=== PATIENT | female | born 1955 | race Caucasian/White ===

== ENCOUNTER 2018-03-08 15:34 | Outpatient (REF) | payer MEDICARE, MEDICAID, SELFPAY ==
[2018-03-11 17:30] LABS: AM Cortisol 205 ng/dL (100-750)
== END 2018-03-08 15:54 ==
LOC: LBN 15:34
PROVIDERS: PCP Family Medicine; Visit Provider Naturopath
DX: F32.9 Major depressive disorder, single episode, unspecified (principal); R53.83 Other fatigue; M79.7 Fibromyalgia; E03.9 Hypothyroidism, unspecified
CPT/HCPCS: 82530

== ENCOUNTER 2018-03-25 01:59 | Outpatient (CLI) | payer MEDICARE, MEDICAID, SELFPAY ==
[2018-03-25 08:39] LABS: Hemoglobin A1C 5.6 % (4.5-6.2)
[2018-03-25 09:26] LABS: Calcium 8.7 mg/dL (8.5-10.1); LDL CHOLESTEROL 106 mg/dL (<100); TSH 2.08 uIU/mL (0.358-3.74)
[2018-03-25 09:54] LABS: FREE T4 0.93 ng/dL (0.76-1.46); PHOSPHORUS 4.6 mg/dL (2.6-4.7)
[2018-03-28 05:11] LABS: Vitamin D 25 Total 35.4 ng/ml (30-100)
[2018-03-28 08:46] LABS: Fructosamine 236 mcmol/L (200 - 285)
== END 2018-03-25 02:19 ==
PROVIDERS: PCP Family Medicine; Visit Provider Internal Medicine Endocrinology, Diabetes & Metabolism
DX: R73.03 Prediabetes (principal); M85.80 Other specified disorders of bone density and structure, unspecified site; E78.00 Pure hypercholesterolemia, unspecified; E03.9 Hypothyroidism, unspecified
CPT/HCPCS: 36415; 82306; 83721; 82310; 82985; 83036; 84100; 84439; 84443

== ENCOUNTER 2018-05-13 09:27 | Outpatient (CLI) | payer MEDICARE, MEDICAID, SELFPAY ==
[2018-05-16 09:37] LABS: Thyroglobulin Antibody 316 U/mL (<61); Thyroperoxidase Antibody 403 U/mL (<61)
[2018-05-16 10:38] LABS: DHEA Sulfate 102 ug/dl (30-182)
[2018-05-17 05:21] LABS: Testosterone, Total 18 ng/dL (8-60)
== END 2018-05-13 09:47 ==
PROVIDERS: PCP Family Medicine; Visit Provider Internal Medicine Endocrinology, Diabetes & Metabolism
DX: E03.9 Hypothyroidism, unspecified (principal); R73.03 Prediabetes; M85.80 Other specified disorders of bone density and structure, unspecified site; L64.8 Other androgenic alopecia
CPT/HCPCS: 36415; 82627; 84403; 86376; 86800

== ENCOUNTER 2018-12-19 14:34 | Outpatient (REF) | payer MEDICARE, MEDICAID, SELFPAY ==
[2018-12-19 20:22] LABS: TSH (W/Ref FT4) 1.31 uIU/mL (0.358-3.74)
[2018-12-19 23:44] LABS: Hemoglobin A1C 5.5 % (4.5-6.2)
== END 2018-12-19 14:54 ==
LOC: NCHCN 14:34
PROVIDERS: PCP Family Medicine; Visit Provider Family Medicine
DX: R73.03 Prediabetes (principal); E05.00 Thyrotoxicosis with diffuse goiter without thyrotoxic crisis or storm
CPT/HCPCS: 83036; 84443

== ENCOUNTER 2019-09-06 10:55 | Outpatient (CLI) | payer MEDICARE, MEDICAID, SELFPAY ==
--- NOTE | 2019-09-06 10:00 | DI.RAD_ITS ---
EXAM: XR SHOULDER LT COMPLETE 2+V CLINICAL HISTORY: Follow Up. TECHNIQUE: 2D digital imaging was performed. COMPARISON: No exams were available for comparison FINDINGS: BONES: There is a tiny osseous fragment in the soft tissues adjacent to the tuberosity on the axillar y view. This may represent an old fracture fragment or calcific tendinosis. No definite acute fract ure or dislocation is seen. No bony destructive lesion is seen. JOINTS: Hypertrophic changes are seen at the acromioclavicular joint consistent with osteoarthritis. The glenohumeral joint is well maintained. SOFT TISSUE: Normal. IMPRESSION: Tiny osseous density adjacent to the tuberosities as described above. This may represent an old frac ture fragment or calcific tendinosis. Degenerative changes of the acromioclavicular joint. DATA REPOSITORY: RADIATION DOSE DELIVERED:
== END 2019-09-06 11:15 ==
PROVIDERS: PCP Family Medicine; Referring Provider Family Medicine; Visit Provider Student in an Organized Health Care Education/Training Program
DX: M25.512 Pain in left shoulder (principal); M19.012 Primary osteoarthritis, left shoulder; M75.22 Bicipital tendinitis, left shoulder; M75.42 Impingement syndrome of left shoulder; M75.52 Bursitis of left shoulder; M75.02 Adhesive capsulitis of left shoulder
CPT/HCPCS: 99204; 73030

== ENCOUNTER 2019-09-12 03:26 | Outpatient (CLI) | payer MEDICARE, MEDICAID, SELFPAY ==
--- NOTE | 2019-09-12 07:15 | DI.MRI_ITS ---
EXAM: MR UPPER JOINT LT WO CLINICAL HISTORY: Failed physical therapy, evaluate for rotator cuff or biceps teaR,BURSITIS,. TECHNIQUE: Multiplanar multisequence MRI was performed. CONTRAST MATERIAL: None COMPARISON: 06 September 2019 plain films FINDINGS: Bones:There is no fracture or contusion pattern. The acromioclavicular joint shows mild spurring. There is a small amount of fluid in the subacromial subdeltoid bursa as well as in the subcoracoid bu rsa. There is some thickening and high signal within both the supraspinatus and infraspinatus tendon s. There is focal full-thickness tear seen anteriorly and distally in the supraspinatus tendon near the attachment on the humeral head. There is few millimeters of retraction. There is no muscular at rophy. No focal tear is seen of the infraspinatus tendon.. The subscapularis and teres minor are no rmal. Labrum and biceps anchor: The biceps tendon is located. The anchor is well maintained. The labrum is within normal limits. IMPRESSION: Full-thickness tear of the anterior supraspinatus tendon with mild retraction. Infraspinatus tendini tis. DATA REPOSITORY:
== END 2019-09-12 03:46 ==
PROVIDERS: PCP Family Medicine; Visit Provider Student in an Organized Health Care Education/Training Program
DX: M25.512 Pain in left shoulder (principal); M75.102 Unspecified rotator cuff tear or rupture of left shoulder, not specified as traumatic; M75.82 Other shoulder lesions, left shoulder; M75.22 Bicipital tendinitis, left shoulder; M75.42 Impingement syndrome of left shoulder
CPT/HCPCS: 73221

== ENCOUNTER 2019-10-05 08:35 | Outpatient (CLI) | payer MEDICARE, MEDICAID, SELFPAY ==
[2019-10-06 19:54] LABS: COVID-19 RT-PCR UVMMC Result Negative (Negative)
== END 2019-10-05 08:55 ==
PROVIDERS: PCP Family Medicine; Visit Provider Family Medicine
DX: Z03.818 Encounter for observation for suspected exposure to other biological agents ruled out (principal)
CPT/HCPCS: U0003

== ENCOUNTER → 2019-11-07 14:03 | Outpatient (BNVA) | payer MEDICARE, MEDICAID, SELFPAY | PROVIDERS: PCP Family Medicine; Referring Provider Family Medicine; Visit Provider Student in an Organized Health Care Education/Training Program | DX: M75.102 Unspecified rotator cuff tear or rupture of left shoulder, not specified as traumatic (principal); M75.22 Bicipital tendinitis, left shoulder; M75.42 Impingement syndrome of left shoulder; M75.52 Bursitis of left shoulder; M25.512 Pain in left shoulder; M75.02 Adhesive capsulitis of left shoulder | CPT/HCPCS: 99214 ==

== ENCOUNTER 2020-04-09 15:46 | Outpatient (REF) | payer MEDICARE, MEDICAID, SELFPAY ==
[2020-04-09 19:03] LABS: HCT 41.3 % (36.0-46.0); HGB 13.8 g/dL (11.2-15.7); MCH 30.7 pg (27.0-33.0); MCHC 33.4 % (32.0-36.0); MPV 11.3 fL (8.0-11.0); Platelet Count 246 10^3/uL (130-400); RBC 4.49 10^6/uL (3.93-5.22); RDW 11.9 % (11.7-14.6); WBC 4.67 10^3/uL (4.4-10.8)
[2020-04-09 19:26] LABS: ALT 36 U/L (14-59); AST 20 U/L (15-37); Albumin 4.2 g/dL (3.4-5.0); Alkaline Phosphatase 70 U/L (46-116); Anion Gap 9.5 mmol/L (3-11); BUN 15 mg/dL (7-18); Bilirubin, Total 0.7 mg/dL (0.2-1.0); CO2 23.5 mmol/L (21.0-32.0); CREATININE 0.85 mg/dL (0.55-1.02); Calcium 9.3 mg/dL (8.5-10.1); Chloride 105 mmol/L (98-107); Glucose 121 mg/dL (74-106); Potassium 4.1 mmol/L (3.5-5.1); Sodium 138 mmol/L (136-145); TSH (W/Ref FT4) 2.32 uIU/mL (0.36-3.74); Total Protein 7.2 g/dL (6.4-8.2)
[2020-04-09 19:30] LABS: Hemoglobin A1C 5.6 % (<5.7)
== END 2020-04-09 16:06 ==
LOC: NCHCN 15:46
PROVIDERS: PCP Family Medicine; Visit Provider Family Medicine
DX: R73.03 Prediabetes (principal); R53.83 Other fatigue; M85.80 Other specified disorders of bone density and structure, unspecified site; Z00.00 Encounter for general adult medical examination without abnormal findings
CPT/HCPCS: 80053; 82306; 85027; 83036; 84443

== ENCOUNTER 2020-05-23 16:35 | Outpatient (REF) | payer MEDICARE, MEDICAID, SELFPAY ==
[2020-05-26 16:49] LABS: COVID-19 RT-PCR Result NEGATIVE (Negative)
== END 2020-05-23 16:55 ==
LOC: NCHCN 16:35
PROVIDERS: PCP Family Medicine; Visit Provider Nurse Practitioner Family
DX: R05 Cough (principal)
CPT/HCPCS: U0003

== ENCOUNTER 2020-07-03 18:38 | Outpatient (REF) | payer MEDICARE, MEDICAID, SELFPAY ==
[2020-07-03 21:10] LABS: FREE T4 0.99 ng/dL (0.76-1.46); TSH (W/Ref FT4) 1.91 uIU/mL (0.36-3.74)
== END 2020-07-03 18:58 ==
LOC: NCHCN 18:38
PROVIDERS: PCP Family Medicine; Visit Provider Family Medicine
DX: E05.00 Thyrotoxicosis with diffuse goiter without thyrotoxic crisis or storm (principal)
CPT/HCPCS: 84439; 84443

== ENCOUNTER → 2020-08-22 13:47 | Outpatient (BNVA) | payer MEDICARE, MEDICAID, SELFPAY | PROVIDERS: PCP Family Medicine; Referring Provider Family Medicine; Visit Provider Urology | DX: N20.0 Calculus of kidney (principal) | CPT/HCPCS: 81003; 99203; 99213 ==

== ENCOUNTER 2020-08-27 01:39 | Outpatient (CLI) | payer MEDICARE, MEDICAID, SELFPAY ==
--- NOTE | 2020-08-27 07:45 | DI.CT_ITS ---
EXAM: CT ABDOMEN PELVIS WO INDICATION: kidney stones,N20.0. COMPARISON: CT RENAL COLIC WO CONTRAST from 10/10/2012 TECHNIQUE: CT examination was performed without contrast administration. FINDINGS: Images obtained through the lung bases are unremarkable. Visualized portions of the liver and splee n appear intact except for apparent 1 cm right hepatic low-attenuation lesion consistent cyst or dipika ngioma. Visualized portions of the pancreas are unremarkable. Gallbladder and bile ducts are CT normal. Abdominal aorta is of normal diameter. No significant abdominal wall hernia. No significant abdominal or pelvic adenopathy. Adrenals appear normal bilaterally. The kidneys are normal in size and shape. There is no evidence of a renal mass hydronephrosis. Ther e is a 6 millimeter in diameter nonobstructing lower left renal calculus. No additional calculi iden tified in the kidneys. No ureteral dilatation or calcification identified. Urinary bladder is unremarkable in appearance. The uterus contains some calcifications which may represent uterine fibroids. There is hemorrhage or calcification in the region the right ovary which is poorly visualized. Possibility ovarian mass is not excluded. Correlation with pelvic ultrasound recommended to rule out a right ovarian mass. IMPRESSION: Nonobstructing 6 millimeter left lower pole renal calculus. No other significant urinary tract patho logy. Findings suggesting calcific or hemorrhagic right ovarian mass, correlation with pelvic ultrasound re commended. RADIATION DOSE DELIVERED: 923.45mGy.cm DLP 923.45mGy.cm Total DLP
== END 2020-08-27 01:59 ==
PROVIDERS: PCP Family Medicine; Visit Provider Urology
DX: N20.0 Calculus of kidney (principal)
CPT/HCPCS: 74176

== ENCOUNTER → 2020-09-03 14:00 | Outpatient (BNVA) | payer MEDICARE, MEDICAID, SELFPAY | PROVIDERS: PCP Family Medicine; Referring Provider Family Medicine; Visit Provider Urology | DX: N20.0 Calculus of kidney (principal) | CPT/HCPCS: 99213 ==

== ENCOUNTER 2020-09-05 14:21 | Outpatient (REF) | payer MEDICARE, MEDICAID, SELFPAY ==
--- OUTSIDE RECORDS SUMMARY | 2020-09-05 14:25 | XMS_ITS ---
:1955 Author Care Team Providers Name Role Phone DR. ERI MARTINEZ Primary Care Provider [phone] DR. ERI MARTINEZ Referring Provider [phone] Allergies Code Code System Name Reaction Severity Status Onset 733039 RxNorm Bactrim ? ? Active ? 913767 RxNorm Cipro ? ? Active ? Hismanal ? ? Active ? Sulfa ? ? Active ? (Sulfonamide Antibiotics) Medications Name Status Start Date Stop Date ? ? amoxicillin 875 mg-potassium Completed ? 06/2015 clavulanate 125 mg tablet [place] Thyroid 30 mg tablet Unknown ? Not available Take 1 tablet every day by oral route before meals for 30 days. citalopram 10 mg tablet Completed ? 04/14/20 16 clonazepam 0.5 mg tablet Active ? Not zi ilable Take 1 tablet 3 times a day by oral route. CombiPatch 0.05 mg-0.14 mg/24 hr transdermal Active 06/2017 Not available Apply 1 patch twice a week by transdermal route. fluticasone propionate 50 Completed ? 2015 mcg/actuation nasal spray,suspension FreeStyle Lancets 28 gauge Completed ? 09/21 FreeStyle Lite Strips Completed ? 09/21/2017 test 3 times day hydrocortisone 2.5 % lotion Active ? Not available APPLY A THIN LAYER TO THE AFFECTED AREA(S) BY TOPICAL ROUTE ONC E DAILY hydrocortisone 2.5 % topical Completed ? 06/2015 cream Jinteli 1 mg-5 mcg tablet Completed ? 2016 Progesterone in Oil Completed ? 04/14/2016 ranitidine 150 mg capsule Completed ? 2015 Take 1 capsule twice a day by oral route. Relion Glucose Test Strips Active ? Not a vailable test 3-4 times daily Ritalin 5 mg tablet Active ? Not availabl e Take 1 tablet 3 times a day by oral route as needed. Synthroid 25 mcg tablet Completed ? 09/22/19 18 0.5 tablet by mouth with plain water ev riley morning at least sixty minutes before all other food, beverages, medication. Take vitamin and/or iron supplements 3 to 4 hours later. True Metrix Glucose Test Strip Completed ? 0 09/21/2017 Take 1 strip 4 times a day by miscell. route as needed. Vitamin Active 04/27/2018 Not available Patient takes some OTC combination of V itamin D and Vitamin K just started on Apr 27 on her own. Vitamin C 250 mg tablet Active ? Not avai lable Take 1 tablet twice a day by oral route. Zantac 150 mg tablet Active ? Not availab le Take 1 tablet as needed by oral route. Zyrtec 10 mg capsule Completed ? 04/14/2016 Take 1 capsule every day by oral route. Problems Name Status Onset Date Source ? Graves' Disease Active 04/13/2016 ? [place] Thyroiditis Active 04/13/2016 ? Reactive Hypoglycemia Active 04/13/2016 ? Neutropenia Active 04/13/2016 ? Posttraumatic Stress Disorder Active 04/13/2016 ? Hemorrhoids Active 04/13/2016 ? Perirectal Abscess Active 04/13/2016 ? Kidney Stone Active 04/13/2016 ? 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 Rosacea Active 04/13/2016 ? Fibromyalgia Active 04/13/2016 ? Osteopenia Active 04/13/2016 ? Fatigue Active 04/13/2016 ? Attention Deficit Hyperactivity Disorder, Active 2015 ? 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 Hypoglycemia Active 12/23/2016 ? Prediabetes Active ? ? Procedures None recorded. Results Lab Results Date Name Specimen Result Interpretation Description Value Range Status Address ? 05/13/2018 Thyroid ? No ? ? ? [place] Peroxidase observation [facility] ([place]) Ab, Serum recorded. [facility]: [address] [place] [address] 05/13/2018 Thyroglobulin ? No ? ? ? [place] Ab, Qual, Serum observation [place] recorded. [facility]: [address] [place] [address] 05/13/2018 Dhea-sulfate, ? No ? ? ? [place] Serum observation [facility] recorded. [facility]: [address] [place] [address] 05/13/2018 Testosterone, ? No ? ? ? [place] Total, Serum observation [place] recorded. [facility]: [address] [place] [address] 04/27/2018 Glucose, Blood ? Blood 154 ? ? Rhc - Fingerstick, capillary Glucose: Specialty: 103 Blood mg/dl [facility] 09/21/2017 Glucose, ? Blood 186 ? ? Rhc - Fingerstick, Glucose: Sp ecialty: 103 Blood mg/dl [facility] 03/21/2017 T4, Free, Serum ? No ? ? ? [place] observation [place] recorded. [facility]: [address] [place] [address], [place] 03/21/2017 TSH, Serum or ? No ? ? ? [place] Plasma observation [place] recorded. [facility]: [address] [place] [address], [place] 03/21/2017 Glucose, Serum ? No ? ? ? [place] or Plasma observation [place] recorded. [facility]: [address] [place] [address], [place] 11/10/2016 T4, Free, Serum ? No ? ? ? [place] observation [place] recorded. [facility]: [address] [place] [address], [place] 11/10/2016 TSH, Serum or ? No ? ? ? [place] Plasma observation [place] recorded. [facility]: [address] [place] [address], [place] 11/10/2016 CMP, Serum or ? No ? ? ? [place] Plasma observation [place] recorded. [facility]: [address] [place] [address], [place] 11/10/2016 T3, Total, ? No ? ? ? [place]astern Serum observation [place] recorded. [facility]: [address] [place] [address], [place] 11/10/2016 T3, Total, ? No ? ? ? [place] Serum observation [place] recorded. [facility]: [address] [place] [address], [place] 08/28/2016 TSH, Serum or ? No ? ? ? [place] Plasma observation [place] recorded. [facility]: [address] [place] [address], [place] 04/28/2016 T4, Free, Serum ? Free T4 1.03 0.7 Fi nal *DO Not Use* NG/dL 6-1 Ch Lab: [address], NG/ [place] dL 04/28/2016 TSH, Serum or ? Thyroid 2.65 0.3 Indu almonte *DO Not Use* Plasma Stimulating mciu/ 6-3 Ch La b: 90 Hormone mL [address], mci [place] u/m L 04/28/2016 T3, Total, ? T3 96 80- Final *D O Not Use* Serum (Triiodothyro NG/dL 200 Ch Lab: 90 nine), NG/ [address], total,S dL [place] 04/14/2016 Phosphorus, ? Phosphorus 4.4 2.3 Fin al *DO Not Use* Serum or Plasma mg/dL -4. C h Lab: [address], mg/ [place] dL 04/14/2016 BMP, Serum or ? Glucose 99 74- Indu l *DO Not Use* Plasma mg/dL 106 Ch Lab: 90 mg/ [address], dL [place] ? ? ? Urea 14 7-1 Final *DO Not Us e* Nitrogen mg/dL 8 Ch Lab: 90 mg/ [address], dL [place] ? ? ? Creatinine 0.9 0.5 Final *DO N ot Use* mg/dL 5-1 Ch Lab: [address], mg/ [place] dL ? ? ? Sodium 144.0 136 Final *DO Not U se* mmol/ -14 Ch Lab: [address], mmo [place] l/l ? ? ? Potassium 4.0 3.5 Final *DO No t Use* mmol/ -5. Ch Lab: [address], mmo [place] l/l ? ? ? Chloride 107 98- Final *DO Not Use* mmol/ 107 Ch Lab: [address], l/l [place] ? ? ? Carbon 29 21- Final *DO Not U se* Dioxide mmol/ 32 Ch Lab: [address], l/l [place] ? ? ? Calcium 9.7 8.5 Final *DO Not Use* mg/dL -10 Ch Lab: [address], mg/ [place] dL ? ? ? Anion Gap 12 ? Final *DO No t Use* Ch Lab: [address], [place] ? ? ? BUN/crea 15.4 12- Final *DO Not Use* 20 Ch Lab: [address], [place] ? ? ? Glomerular >60 ? Final *DO N ot Use* Filtration mL/mi Ch Lab : 90 Rate n/1.[address], 3M2 [place] 04/14/2016 PTH ? PTH, Intact 33 12- Final *DO Not Use* (Parathyroid pg/mL 77 Ch L ab: 90 Hormone), pg/ [address], Intact, Serum mL [place] or Plasma 04/14/2016 Vitamin D, ? Vitamin D, 33.4 30- Indu l *DO Not Use* 25-Hydroxy, Total (25 Oh) NG/mL 100 Ch Lab: 90 Total, Serum NG/ [address], mL [place] Past Encounters None recorded. Social History Tobacco Smoking Status Never Smoker Notes: 09/21/17 Vaccine List None recorded. Plan of Care Reminders Provider Appointments None ? ? recorded. Lab None ? ? recorded. Referral None ? ? recorded. Procedures None ? ? recorded. Surgeries None ? ? recorded. Imaging None ? ? recorded. Vitals 04/27/2018 04:30PM ENDOCRINOLOGY FOLLOW UP 30 Height Weight BMI Blood Pressure 157.48 cm 66.68 kg 26.9 kg/m2 100/64 mm[Hg] 09/21/2017 02:00PM ENDOCRINOLOGY FOLLOW UP 30 Height Weight BMI Blood Pressure 157.48 cm 72.12 kg 29.1 kg/m2 124/60 mm[Hg] 03/30/2017 12:30PM ENDOCRINOLOGY FOLLOW UP 30 Height Weight BMI Blood Pressure 157.48 cm 73.48 kg 29.6 kg/m2 102/66 mm[Hg] 11/24/2016 11:30AM ENDOCRINOLOGY FOLLOW UP 30 Height Weight BMI Blood Pressure 157.48 cm 72.57 kg 29.3 kg/m2 122/64 mm[Hg] 09/02/2016 12:30PM ENDOCRINOLOGY FOLLOW UP 30 Height Weight BMI Blood Pressure 157.48 cm 72.57 kg 29.3 kg/m2 128/62 mm[Hg] 06/24/2016 12:30PM ENDOCRINOLOGY FOLLOW UP 30 Height Weight BMI Blood Pressure 157.48 cm 68.95 kg 27.8 kg/m2 134/76 mm[Hg] 04/28/2016 12:30PM ENDOCRINOLOGY FOLLOW UP 30 Height Weight BMI Blood Pressure 157.48 cm 67.13 kg 27.1 kg/m2 122/78 mm[Hg] 04/14/2016 01:00PM ENDOCRINOLOGY DIABETIC CONSULT Height Weight BMI Blood Pressure 157.48 cm 68.04 kg 27.4 kg/m2 110/68 mm[Hg]
[2020-09-05 15:55] LABS: Sodium, Urine 78 mmol/L
[2020-09-05 16:02] LABS: Creatinine,24hr Ur 1.24 g/24hr (0.60-1.80); Total Volume 1975 ml
[2020-09-05 16:03] LABS: CLEAVED CELLS 154 mmol/24h (40-220); Total Volume 1975 ml
[2020-09-06 09:46] LABS: Calcium Urine 10.9 mg/dL (See Note); Calcium Urine 24 hr 215 mg/24hrs (100-300); Magnesium 24hr Urine 246.9 mg/24hrs (12.0-192.0); Magnesium Random Urine 12.5 mg/dL (See Note); Timed Urine Volume 1975 mL; Uric Acid Urine 31.3 mg/dL (See Note); Uric Acid Urine 24hr 618 mg/24hrs (250-750)
[2020-09-07 15:49] LABS: Citrate Excretion, 24hr, U 1367 mg/24 h; Urine Volume 1975 mL
[2020-09-08 13:27] LABS: Oxalate, U 0.55 mmol/24 h; Oxalate, U 48.4 mg/24 h (9.7 - 40.5); Urine Volume 1975 mL
== END 2020-09-05 14:22 | disposition home or self-care (01) ==
LOC: LBN 14:21
PROVIDERS: PCP Family Medicine; Visit Provider Urology
DX: N20.0 Calculus of kidney (principal)
CPT/HCPCS: 82507; 83735; 81050; 82340; 82570; 83945; 84300; 84560

== ENCOUNTER → 2020-10-04 13:18 | Outpatient (BNVA) | payer MEDICARE, MEDICAID, SELFPAY | PROVIDERS: PCP Family Medicine; Referring Provider Family Medicine; Visit Provider Urology | DX: N20.0 Calculus of kidney (principal) | CPT/HCPCS: 99213 ==

== ENCOUNTER 2021-02-04 03:37 | Outpatient (CLI) | payer MEDICARE, MEDICAID, SELFPAY ==
--- NOTE | 2021-02-04 08:45 | DI.US_ITS ---
Exam(s) US RENAL EXAM: US RENAL CLINICAL HISTORY: monitor known stone, CALCULUS OF KIDNEY, N20.0. TECHNIQUE: Bolton scale, color and spectral Doppler were used. COMPARISON: CT CT ABDOMEN PELVIS WO from 08/27/[address] ABDOMEN PELVIS WO from 08/27/2020 FINDINGS: Renal size in cm: Right: 9.2 left: 9.3 Echogenicity: Normal Hydronephrosis: No Cyst or mass: No Nephrolithiasis: 7 x 5 millimeter stone lower pole left kidney. Bladder:Normal Prevoid vol:34 Postvoid vol:Not performed Both ureteral jets were visualized. IMPRESSION: 7 millimeter stone lower pole left kidney. No hydronephrosis. DATA REPOSITORY:
== END 2021-02-04 03:57 ==
PROVIDERS: PCP Family Medicine; Visit Provider Urology
DX: N20.0 Calculus of kidney (principal)
CPT/HCPCS: 76770; 99213

== ENCOUNTER 2021-03-10 16:56 | Outpatient (REF) | payer MEDICARE, MEDICAID, SELFPAY ==
[2021-03-10 20:30] LABS: Hemoglobin A1C 5.8 % (<5.7)
[2021-03-10 20:35] LABS: Anion Gap 6.1 mmol/L (3-11); BUN 15 mg/dL (7-18); CO2 29.9 mmol/L (21.0-32.0); CREATININE 0.9 mg/dL (0.55-1.02); Calcium 9.4 mg/dL (8.5-10.1); Chloride 107 mmol/L (98-107); Glucose 100 mg/dL (74-106); Potassium 4.5 mmol/L (3.5-5.1); Sodium 143 mmol/L (136-145); TSH (W/Ref FT4) 1.49 uIU/mL (0.36-3.74)
== END 2021-03-10 16:57 | disposition home or self-care (01) ==
LOC: NCHCN 16:56
PROVIDERS: PCP Family Medicine; Visit Provider Family Medicine
DX: R73.03 Prediabetes (principal); E05.00 Thyrotoxicosis with diffuse goiter without thyrotoxic crisis or storm; R00.2 Palpitations
CPT/HCPCS: 80048; 83036; 84443

== ENCOUNTER 2021-05-27 07:22 | Outpatient (CLI) | payer MEDICARE, MEDICAID, SELFPAY ==
--- NOTE | 2021-06-16 15:43 | W.CARDEVENT ---
Date of service: 06/16/21 Time of Service: 15:44 Cardiac Event Recorder Referring Provider:: Pao Kilgore Indications:: Palpitations Cardiac Event Note: This is a 14-day cardiac event monitor ordered for palpitations Predominant rhythm was sinus with an average heart rate of 78. Minimum was 56, maximum 128 There were no supraventricular dysrhythmias There were very rare premature ventricular contractions. There was 111 beat run of nonsustained ventricular tachycardia which was asymptomatic There was no atrial fibrillation, no high-grade AV block, no pauses greater than 3 seconds There were 2 patient triggered events, chest pain, and palpitations, which did not correspond to cardiac dysrhythmia.
== END 2021-05-27 07:23 | disposition home or self-care (01) ==
LOC: RT 07:28
PROVIDERS: PCP Family Medicine; Visit Provider Family Medicine
DX: R00.2 Palpitations (principal)
CPT/HCPCS: 93246

== ENCOUNTER 2021-06-02 15:16 | Outpatient (REF) | payer MEDICARE, MEDICAID, SELFPAY ==
[2021-06-02 20:25] LABS: Hemoglobin A1C 5.6 % (<5.7)
[2021-06-02 20:38] LABS: C-Reactive Protein 0.09 mg/dL (0.0-0.3); TSH (W/Ref FT4) 1.33 uIU/mL (0.36-3.74)
[2021-06-04 15:06] LABS: ANA Interpretation Positive (Negative); ANA Titer Pattern 1:160 Homogeneous
== END 2021-06-02 15:17 | disposition home or self-care (01) ==
LOC: NCHCN 15:16
PROVIDERS: PCP Family Medicine; Visit Provider Family Medicine
DX: R00.2 Palpitations (principal)
CPT/HCPCS: 83036; 84443; 86038; 86140

== ENCOUNTER → 2021-06-16 00:58 | Outpatient (CLI) | payer OTHER, MEDICAID, SELFPAY ==
--- NOTE | 2021-06-16 11:00 | DI.NM_ITS ---
APPROVED REPORT Exam: Exercise Treadmill Patient Location: Out-Patient Room/Bed: Stress Nurse: Samira Pike RN Ordering Provider:ERI MARTINEZ, Contact Number: [phone] BMI: 28.33 Baseline Rhythm: Sinus Rhythm Comment: Low voltage precordial leads Indications: Chest pain, chest pain for months, sometimes walking or at rest. Sometimes burning/press ure/exertional lightheadedness. Medical History Medical History: Prediabetes, fibromyalgia, Grave's disease, asthma Cardiac Medications: Methylphenidate, propranolol (PRN for fibromyalgia), levalbuterol tartrate, nagi phylline Allergies: Astemizole, sulfa abx, serotonin, meperidine, ciprofloxacin Cardiac Risk Factors: Prediabetes, asthma Previous Cardiac Procedures: None Pretest Chest Pain Characteristics: Intermittent 3/10 L chest pain, heavy Exercise History: Indeterminate Physical Disabilities: None Lung Sounds: Clear to auscultation Heart Sounds: Regular Stress Test Details Test: Exercise stress testing was performed using a Ki protocol. Nuclear Acquisition: Rest Tc-99m/Stress Tc-99m 1 day Rest Isotope: Tc-99m Sestamibi. Dose: 11.0 Date: 06/16/2021 Injection Time: 1125 Stress Isotope: Tc-99m Sestamibi. Dose: 36.0 Date: 06/16/2021 Injection Time: 1323 HR Resting HR Supine: 84 bpm Max Heart Rate (APMHR): 154.249219 bpm Resting HR Standin bpm Target HR (85% APMHR): 130.421004 bpm Max HR Achieved: 140 bpm % of APMHR: 90.91 Recovery HR: 99 bpm HR response to stress: Normal HR response to stress Comment: Propranolol (for Fibromyalgia) held for several days prior to testing. BP Resting BP Supine: 124/78 mmHg Resting BP Standin/80 mmHg Max BP: 182/84 mmHg Recovery BP: 142/78 mmHg BP response to stress: Normal blood pressure response to stress. ECG Resting ECG: Sinus Rhythm Ectopy: None Comment: Low voltage precordial leads Stress ECG: Sinus Tachycardia ST Change: No significant ST segment changes noted Arrhythmia: None Recovery ECG: Sinus Rhythm Recovery ST Change: No significant ST segment changes noted Recovery Arrhythmia: None Clinical Reason for Termination: Fatigue Stress Symptoms: General Fatigue, intermittent chest pain, lightheaded Exercise duration: 8 min53 sec Highest Stage Reached: Stage 3: 3.4 mph at 14% grade. Exercise capacity: 10.16 METs Hodge Treadmill Score: 4.1 Rate Pressure Product: 95029 Stress ECG Conclusion 1. Resting electrocardiogram was within normal limits 2. Patient exercised on the Ki protocol and completed a workload of 10.16 METS. 3. Normal heart rate and blood pressure response to exercise. The patient achieved 90% of predicted heart rate for age 4. Electrocardiographically there was no evidence of myocardial ischemia with exercise 5. There were no significant dysrhythmias Hodge Treadmill Score is 4.1 which is Moderate risk. Stress Test Summary STAGE Time (mins) Speed (mph) Grade (%) HR BP SYMPTOMS METS Supine 84 124/78 Standing 92 126/80 Intermittent L CP 3/10, SpO2 98% 1 3 1.7 10 113 148/76 Momentary L CP 3/10 (resolved quickly) SpO2 98% 4.6 2 6 2.5 12 124 160/82 Mild lightheadedness, SpO2 98% 7 3 9 3.4 14 135 162/86 Momentary L CP 3/10 (resolved quickly), SpO2 98% 10.2 1 min recovery 120 182/84 Moderate lightheadedness, SpO2 98% 3 min recovery 101 164/82 SpO2 98% 6 min recovery 99 142/78 Lightheadedness resolved, SpO2 98% Pt reported intermittent heavy L sided chest pain 3/10 prior to start of test. During test patient fe lt similar chest pain during first stage and third stage of exercise. Chest pain was momentary and re solved quickly. Pt also reported mild-moderate lightheadedness during test and recovery which resolve d by minute 6 of recovery. MPI Conclusion Normal myocardial perfusion without evidence of ischemia or prior infarction EF is 91%. LV is hyperdynamic Radiologist Interpretation Radiologist agrees with Pack Master's Interpretation. Radiologist Interpretation by: Dolores Yates MD Interpretation Date/Time: 06/16/2021 16:00:57
== END ==
PROVIDERS: PCP Family Medicine; Visit Provider Family Medicine
DX: R07.9 Chest pain, unspecified (principal); R73.03 Prediabetes; J45.909 Unspecified asthma, uncomplicated
CPT/HCPCS: 78452; 93016; 93018; 93017

== ENCOUNTER 2021-06-16 15:44 | Outpatient (CLI) | payer OTHER, MEDICAID, SELFPAY | END 2021-06-16 15:45 | LOC: CARDO 06-20 12:44 | PROVIDERS: PCP Family Medicine; Referring Provider Family Medicine; Visit Provider Internal Medicine Cardiovascular Disease | DX: R00.2 Palpitations (principal); I47.2 Ventricular tachycardia | CPT/HCPCS: 93248 ==

== ENCOUNTER 2021-07-04 01:11 | Outpatient (CLI) | payer OTHER, MEDICAID, SELFPAY ==
--- NOTE | 2021-07-04 14:30 | DI.MAMMO_ITS ---
Exam(s) MAMMO SCREENING EXAM: MAMMO SCREENING CLINICAL HISTORY: SCREENING, Z12.39 TECHNIQUE: Mammograms were interpreted according to the usual protocol including computer analysis w [employer] CAD system, tomosynthesis and C-view imaging. COMPARISON: 2013 through 2017 FINDINGS: The breasts are composed of heterogeneously dense fibroglandular densities, Breast Density category C . No suspicious masses or suspicious microcalcifications are seen. No skin thickening or abnormal axillary lymph nodes are seen. There has been no significant change from prior exams. IMPRESSION: BI-RADS Category 1, Negative mammogram. Yearly screening mammography is recommended. Breast Density Category C, heterogeneously Dense. The mammogram demonstrates the patient's breast tissue is dense. Dense breast tissue is very common a nd is not abnormal but dense breast tissue can make it harder to find cancer on a mammogram. Also, de nse breast tissue may increase breast cancer risk. This information about the result of the mammogram report was provided to the patient to raise their awareness. Use this report when you speak with the patient about their risks for breast cancer, which includes their family history. At that time, you may recommend additional screening tests (Ultrasound or MRI) as they might be useful based on their r isk. A negative radiographic report should not delay biopsy if a dominant or clinically suspicious mass is present. Up to ten percent of cancers are not identified on mammography. A negative report may reinforce clinical impression. Adenosis and dense breasts may obscure an underlying neoplasm. False positive reports average 6 to 10%.
--- NOTE | 2021-07-04 15:00 | DI.DEXA_ITS ---
Exam(s) XR DEXA BONE DENSITY W/WO AQUILES EXAM: XR DEXA BONE DENSITY W/WO AQUILES CLINICAL HISTORY: MENOPAUSAL, Z78.0 TECHNIQUE: [employer] C densitometer COMPARISON: 2008, 2010 and 2015 FINDINGS: Lateral view of the thoracic and lumbar spine shows no evidence of compression fractures. Bone mineral density measurements of the lumbar spine correspond to a total T-score of -2.1, in the osteopenic range. This represents a 14.3 percent increase from 2016 and 6.7 percent increase from 03 03. Bone mineral density measurements of the left hip correspond to a total T-score of -0.7. The femora l neck T-score is -1.6, in the osteopenic range. This represents a 4 percent increase compared with 2015 and 3.2 percent increase when compared with 2008.. The left forearm bone mineral density measurements correspond to a T-score of the distal 3rd of -1.0 , at the lower limit of normal. This represents a 3.4 percent decrease from 03/05 and is not signifi cantly changed from 2016. The forearm was not analyzed in 2008.. IMPRESSION: Normal bone mineral density of forearm. Osteopenia of the lumbar spine and left hip with increase in bone density when compared with previous exams.
== END 2021-07-04 01:31 ==
PROVIDERS: PCP Family Medicine; Visit Provider Family Medicine
DX: Z12.31 Encounter for screening mammogram for malignant neoplasm of breast (principal); M85.88 Other specified disorders of bone density and structure, other site; Z78.0 Asymptomatic menopausal state
CPT/HCPCS: 77063; 77067; 77080

== ENCOUNTER 2021-07-21 03:06 | Outpatient (CLI) | payer OTHER, MEDICAID, SELFPAY ==
[2021-07-21 12:17] LABS: Source Nasal/Nares
[2021-07-21 19:57] LABS: COVID-19 PCR Negative (Negative)
== END 2021-07-21 03:07 | disposition home or self-care (01) ==
LOC: LBO 03:06
PROVIDERS: PCP Family Medicine; Visit Provider Obstetrics & Gynecology Gynecology
DX: Z01.818 Encounter for other preprocedural examination (principal); Z20.822 Contact with and (suspected) exposure to COVID-19
CPT/HCPCS: 87635

== ENCOUNTER 2021-07-22 02:04 | Outpatient (CLI) | payer OTHER, MEDICAID, SELFPAY ==
[2021-07-22 14:58] LABS: HCT 44.6 % (36.0-46.0); HGB 14.4 g/dL (11.2-15.7); MCH 29.9 pg (27.0-33.0); MCHC 32.3 % (32.0-36.0); MCV 92.5 fL (80-95); MPV 10.8 fL (8.0-11.0); Platelet Count 220 10^3/uL (130-400); RBC 4.82 10^6/uL (3.93-5.22); RDW 11.8 % (11.7-14.6); RDW-SD 40.2 fL; WBC 4.92 10^3/uL (4.4-10.8)
[2021-07-22 16:44] LABS: Anion Gap 10.5 mmol/L (3-11); BUN 20 mg/dL (7-18); CO2 25.5 mmol/L (21.0-32.0); CREATININE 1.1 mg/dL (0.55-1.02); Calcium 9.5 mg/dL (8.5-10.1); Chloride 105 mmol/L (98-107); Estimated GFR 49.69 (mL/min/1.73m2); Glucose 139 mg/dL (74-106); Potassium 4.2 mmol/L (3.5-5.1); Sodium 141 mmol/L (136-145)
== END 2021-07-22 02:05 | disposition home or self-care (01) ==
LOC: LBO 02:04
PROVIDERS: Obstetrics & Gynecology Gynecology; PCP Family Medicine; Visit Provider Family Medicine
DX: Z01.818 Encounter for other preprocedural examination (principal)
CPT/HCPCS: 36415; 80048; 85027; 86850; 86900; 86901

== ENCOUNTER 2021-07-23 07:04 | Day surgery (SDC) | payer OTHER, MEDICAID, SELFPAY ==
[2021-07-23 07:24] VITALS: BP 130/85; PULSE 87; RESP 16; TEMP 36.6; O2SAT 97
[2021-07-23] MEDS: Lactated Ringers 1,000 ML 125 ML IV (07:53)
--- NOTE | 2021-07-23 09:37 | W.ANESPRE ---
General Info Date of Service Date Performed: 07/23/21 Height: 5 ft 1 in Weight: 72.9 kg Body Mass Index (BMI): 30.3 Surgical Procedure: Operation Date: 07/23/21 08:55 Proposed Procedures Side Surgeon p Hysteroscopy, D&C, PAP Test Tawny Hall MD Meds Allergies and Home Medications Allergies Allergy/AdvReac Type Severity Reaction Status Date / Time meperidine HCl [From Demerol] Allergy Intermediate Other (See Verified 07/23/21 07:45 Comment) Sulfa (Sulfonamide Allergy Mild Nausea Verified 07/23/21 07:45 Antibiotics) Serotonin 5HT-3 Antagonists Allergy Unknown Other (See Verified 07/23/21 07:45 Comment) ciprofloxacin HCl AdvReac Unknown Nausea Verified 07/23/21 07:45 [From Cipro] Home Medication Medication Instructions Recorded blood sugar diagnostic [Freestyle strip 03/30/14 Lite Test Strips] hydrocortisone 30 gm TOPICAL PRN PRN script 03/30/14 lancets [Freestyle Lancets] ea 03/30/14 Jacob Mag 3 cap PO DAILY 07/02/15 kmssersl-vky-UV-lycopen-lutein 1 ea PO DAILY 07/02/15 [Centrum Silver Tablet] ascorbic acid (vitamin C) 500 mg 500 mg PO DAILY 08/21/19 tablet cyclobenzaprine 5 mg tablet 5 mg PO TID PRN 08/21/19 methylphenidate HCl 5 mg tablet 5 mg PO BID 08/21/19 clonazepam 0.5 mg tablet 0.5 mg PO TID 07/10/20 clotrimazole 1 % topical cream 1 applic TOPICAL BID 07/10/20 famotidine 20 mg tablet 20 mg PO DAILY PRN 07/10/20 grape seed extract 50 mg capsule 100 mg PO ONCE cap 07/10/20 levalbuterol tartrate 45 2 inh INHALATION Q4H PRN g 07/10/20 mcg/actuation aerosol inhaler milk thistle seed extract 87.5 mg 87.5 mg PO DAILY 07/10/20 capsule vitamin B complex 1 tab PO DAILY 07/10/20 propranolol 10 mg tablet 10 mg PO BID PRN 08/22/20 betamethasone, augmented 0.05 % 1 applic TOPICAL .COMPLEX #50 g 07/16/21 topical ointment cholecalciferol (vitamin D3) 50 50 mcg PO DAILY 07/16/21 mcg (2,000 unit) capsule Current Visit Medications: Current Medications Generic Name Dose Route Start Last Admin Trade Name Freq PRN Reason Stop Dose Admin Ringer's Solution 1,000 mls @ 125 mls/hr 07/23/21 06:00 07/23/21 07:53 IV 08/11/21 23:59 125 mls/hr INFUSION TEJA Administration IV Miscellaneous Supplies 1 each 07/23/21 06:00 Iv Access IV 08/11/21 23:59 DIRECTED TEJA Sodium Chloride 0 ml 07/23/21 06:00 Normal Saline Flush 10 Ml Syr IV 08/11/21 23:59 PRN PRN Sodium Chloride 0 ml 07/23/21 06:00 Normal Saline 10 Ml Vial IJ 08/11/21 23:59 DIRECTED PRN Sterile Water 0 ml 07/23/21 06:00 Water,Injection,Sterile 10 Ml Vial IJ 08/11/21 23:59 DIRECTED PRN PFSH Active Problems Active Problems: Problem Status Onset Code Sinusitis, acute J01.90 Rotator cuff arthropathy of left shoulder M12.812 Hair loss L65.9 Prediabetes R73.03 Graves disease E05.00 Fibromyalgia M79.7 Reactive hypoglycemia E16.1 Hemorrhoid K64.9 Perirectal abscess K61.1 Neutropenia D70.9 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 Osteopenia M85.80 Calculus, kidney N20.0 Menopausal state N95.1 Atrophic vaginitis N95.2 Preventative health care Z00.00 Shoulder pain M25.519 Adhesive capsulitis of left shoulder M75.02 Bursitis of left shoulder M75.52 Impingement syndrome of left shoulder M75.42 Tendinitis of long head of biceps brachii of left shoulder M75.22 Left rotator cuff tear M75.102 Lichen sclerosus L90.0 Postmenopausal bleeding N95.0 Fibroids, submucosal D25.0 Hx of dilation and curettage Z98.890 Hx of postmenopausal hormone replacement therapy Z92.29 Medical History Medical History ADD (attention deficit disorder) Hypoglycemia Pneumonia Primary fibromyalgia syndrome PTSD (post-traumatic stress disorder) Rosacea thyroid disease Surgical History Surgical History Perirectal abscess drainage. Tobacco Smoking/Tobacco Use Status: Never Second hand exposure: Yes Alcohol Alcohol Intake: former Substance Use Substance use: Never Substance use type: does not use Prental History History 2 Para Hx # Term Pregnancies Multiple births Hx # Pregnancies Ectopic pregnancies AB induced 2 Hx Number of Living Children AB spontaneous Vital Signs and Lab Results Vital Signs Most Recent Vital Signs in EMR: Most Recent Vital Signs Temp Pulse Resp BP Pulse Ox 36.6 C 87 16 130/85 97 07/23/21 07:24 07/23/21 07:24 07/23/21 07:24 07/23/21 07:24 07/23/21 07:24 Point of Care Results Point of Care Results: Finger Stick Blood Glucose 104 07/23/21 09:05 Lab Results Blood Type / Crossmatch: Patient ABO/Rh A Positive 07/22/21 Antibody Screen NEGATIVE 07/22/21 Complete Blood Count: White Blood Count 4.92 10^3/uL (4.4-10.8) 07/22/21 14:47 07/22/21 Red Blood Count 4.82 10^6/uL (3.93-5.22) 07/22/21 14:47 07/22/21 Hemoglobin 14.4 g/dL (11.2-15.7) 07/22/21 14:47 07/22/21 Hematocrit 44.6 % (36.0-46.0) 07/22/21 14:47 07/22/21 Platelet Count 220 10^3/uL (130-400) 07/22/21 14:47 07/22/21 Complete Metabolic Panel: Sodium Level 141 mmol/L (136-145) 07/22/21 14:47 07/22/21 Potassium Level 4.2 mmol/L (3.5-5.1) 07/22/21 14:47 07/22/21 Chloride Level 105 mmol/L (98-107) 07/22/21 14:47 07/22/21 Carbon Dioxide Level 25.5 mmol/L (21.0-32.0) 07/22/21 14:47 07/22/21 Blood Urea Nitrogen 20 mg/dL (7-18) H 07/22/21 14:47 07/22/21 Creatinine 1.1 mg/dL (0.55-1.02) H 07/22/21 14:47 07/22/21 Estimated GFR/1.73 m2 49.69 (mL/min/1.73m2) 07/22/21 14:47 07/22/21 Calcium Level 9.5 mg/dL (8.5-10.1) 07/22/21 14:47 07/22/21 Glucose Level 139 mg/dL (74-106) H 07/22/21 14:47 07/22/21 Liver Function Panel: No Data to Display Coagulation Panel: No Data to Display Cardiac Panel: No Data to Display Arterial Blood Gas: No Data to Display Venous Blood Gas: No Data to Display Pancreas Panel: No Data to Display Thyroid Panel: No Data to Display Infectious Disease: Coronavirus (COVID-19)(PCR) Negative (Negative) 07/21/21 10:54 07/21/21 Coronavirus 2019 Source Nasal/Nares 07/21/21 10:54 07/21/21 Blood Cultures: No Data to Display Toxicology Panel: No Data to Display Imaging and Studies Imaging and Studies Study information below may be from another EMR and interpreted by another provider. Please see original notes in EMR for more complete details. Stress Test Summary: Stress ECG Conclusion 1. Resting electrocardiogram was within normal limits 2. Patient exercised on the Ki protocol and completed a workload of 10.16 METS. 3. Normal heart rate and blood pressure response to exercise. The patient achieved 90% of predicted heart rate for age 4. Electrocardiographically there was no evidence of myocardial ischemia with exercise 5. There were no significant dysrhythmias Hodge Treadmill Score is 4.1 which is Moderate risk. Echocardiogram Summary: Impressions: Normal study. Summary: 1. Left ventricle: The cavity size was normal. Wall thickness was normal. Systolic function was normal. The estimated ejection fraction was 65%. Wall motion was normal; there were no regional wall motion abnormalities. 2. Aortic valve: Trileaflet; normal thickness leaflets. Transvalvular velocity was within the normal range. There was no stenosis. 3. Mitral valve: Structurally normal valve. There was trivial regurgitation. 4. Left atrium: The atrium was normal in size. 5. Right ventricle: The cavity size was normal. Wall thickness was normal. Systolic function was normal. 6. Tricuspid valve: Structurally normal valve. There was mild regurgitation. 7. Pulmonary arteries: Pulmonary systolic pressure was within the normal range. 8. Baseline ECG: Normal sinus rhythm. Anesthesia Assessment and Plan Anesthesia History Personal History: PONV Family History: No Family History of Anesthesia Complications Exercise Tolerance Exercise Tolerance: Metabolic Equivalents>4 Pertinent Negatives Pertinent Negatives: No Symptoms of GERD Cardiac & Pulmonary Exam Cardiac Exam: Normal S1/S2 Heart Sounds Pulmonary Exam: Clear Bilateral Breath Sounds Implantable Cardiac Device Does patient have a Pacemaker or an ICD?: No Airway Exam Known Difficult Airway: No Mallampati Class: 3 Mouth Opening: Normal (> 3cm) Thyromental Distance: Greater than 3 cm Neck Range of Motion: Full ROM Neck Circumference: Normal Teeth Condition: Normal Dentition and Generalized Poor Dentition ASA Classification ASA Score: ASA 2 Emergency Case?: No NPO Status NPO Status: NPO Clears >2 hours, Solids >8 hours Anesthesia Plan Resuscitation Status: Full Code Anesthesia Technique: General Anesthesia Airway Planned: Natural Airway Monitors Used: Standard Monitors
[2021-07-23 09:39] VITALS: BMI 30.3
[2021-07-23] MEDS: Bupivacaine 0.25% Pres-Free 30 ML VIAL (10:48)
--- NOTE | 2021-07-23 10:56 | ENDOMET_PTH ---
PATIENT: Stacey Howard LOC: [facility] U#:[id number] AGE/SX: 66/F ROOM: RE07/23/[address]: Tawny Hall : 1955 BED: DIS: 07/23/2021 SPEC #: [id number] RECD: 07/23/21 13:03 STATUS: TEE RESol #: [id number] URIEL: 07/23/21 10:[address]: Tawny Hall DEPT: Surgical Specimen RECD BY: Ju Knight ENTERED: 07/23/21 13:05 SP TYPE: Endomet OTHR DR: Pao Kilgore Tissues: 1 - ENDOMETRIUM BX/CURRETTE Procedures: GROSS AND MICRO LEVEL 4 Comments: [id number]
--- NOTE | 2021-07-23 11:00 | PAPFT_PTH ---
PATIENT: Stacey Howard LOC: [facility] U#:[id number] AGE/SX: 66/F ROOM: RE07/23/[address]: Tawny Hall : 1955 BED: DIS: 07/23/2021 SPEC #: [id number] RECD: 07/23/21 13:14 STATUS: TEE RESol #: [id number] URIEL: 07/23/21 11:[address]: Tawny Hall DEPT: [facility] Cytology RECD BY: Ju Knight ENTERED: 07/23/21 13:14 SP TYPE: PAPFT OTHR DR: Pao Kilgore Tissues: 1 - CX/ENDOCX FOR PAP SMEARS Procedures: PAP THIN PREP/UVM Screening HPV DNA PROBE Comments: [id number]
--- NOTE | 2021-07-23 11:07 | W.PM.DSUDISC ---
Discharge Plan Disposition Patient Disposition: HOME Condition: Good Discharge Details Attending Provider: Tawny Hall Primary Care Provider: Pao Kilgore Home Meds and New Rx's Prescriptions: No Action cholecalciferol (vitamin D3) 50 mcg (2,000 unit) capsule 50 mcg PO DAILY RF: 0 betamethasone, augmented 0.05 % ointment 1 applic topical .COMPLEX Qty: 50 RF: 4 (DME) FreeStyle Lite Strips 1 EACH strip 1 ea Miscellaneous DIRECTED RF: 0 hydrocortisone 30 GM cream 30 gm Topical PRN PRNRF: 0 (DME) lancets [FreeStyle Lancets] 1 EACH misc 1 ea Miscellaneous DIRECTED RF: 0 Centrum Silver 1 EACH tablet 1 ea PO DAILY RF: 0 Jacob Mag 3 cap PO DAILY RF: 0 cyclobenzaprine 5 mg tablet 5 mg PO TID PRNRF: 0 methylphenidate HCl [Ritalin] 5 mg tablet 5 mg PO BID RF: 0 ascorbic acid (vitamin C) [Vitamin C] 500 mg tablet 500 mg PO DAILY RF: 0 clonazepam 0.5 mg tablet 0.5 mg PO TID RF: 0 famotidine 20 mg tablet 20 mg PO DAILY PRNRF: 0 levalbuterol tartrate [Xopenex HFA] 45 mcg/actuation HFA aerosol inhaler 2 inh inhalation Q4H PRNRF: 0 clotrimazole 1 % cream 1 applic topical BID RF: 0 vitamin B complex Tablet 1 tab PO DAILY RF: 0 milk thistle seed extract 87.5 mg capsule 87.5 mg PO DAILY RF: 0 grape seed extract 50 mg capsule 100 mg PO ONCE RF: 0 propranolol 10 mg tablet 10 mg PO BID PRNRF: 0 Discharge Instructions Stand Alone Forms: DSU Post Gynecology Surgery Activity:: Activity as Tolerated Diet:: As Tolerated Discharge Orders Discharge Orders: Discharge Order (Routine); Ordered 07/23/21 Ordered By: Tawny Hall DS: Diagnosis Discharge Diagnosis (1) Postmenopausal bleeding: Status: Acute (2) Hx of dilation and curettage: Status: Acute
[2021-07-23 11:15] VITALS: BP 123/75; PULSE 81; RESP 18; TEMP 36.3; O2SAT 95
[2021-07-23] MEDS: Ketorolac 30 MG/ML VIAL IVP (11:21)
--- NOTE | 2021-07-23 11:21 | ROE_ITS ---
Date of service: 07/23/21 Time of Service: 11:21 Operative Note Operative Note DATE OF PROCEDURE: 07/23/21 PRE-OP DIAGNOSIS: postmenopausal bleeding, Needs pap/HPV test POST-OP DIAGNOSIS: same PROCEDURE: diagnostic hysteroscopy with uterine curretage, cervical Pap and HPV testing SURGEON: Tawny Hall ANESTHESIA TYPE: General:No Airway Refer to Anesthesia Record ESTIMATED BLOOD LOSS: 0 PATHOLOGY: other (Pap/HPV, endometrial curretings) COMPLICATIONS: None Patient was transported to: same day Patient's condition: stable Indications: 66yo G0 female with a recent episode of vaginal spotting. Findings: Uterus sounded to 6 cm. No evidence of an endometrial cavity filling defect. There was a round indentation approximately 2 mm deep in 1 cm in circumference at the uterine fundus. No evidence of submucosal fibroids or polypoid structures. The right tubal ostia was visualized. Endocervical canal appeared normal. Procedure Description: Patient was taken to the operating room where she was placed in the dorsal supine position and general anesthesia was administered without difficulty. She was then placed in the dorsal lithotomy position in [facility] stirrups in a neurologically neutral position. She was then prepped, and draped in the usual sterile fashion. Surgical timeout was performed. Templeton speculum was placed into the vagina and the anterior lip of the cervix was infiltrated with 2 cc of 0.25% Marcaine without epinephrine. A single-tooth tenaculum was then used to grasp and hold the anterior lip of the cervix. A paracervical block was performed with 4 cc of quarter percent Marcaine injected into the 4 and 8:00 paracervical spaces respectively. The uterus was sounded to 6cm. The cervix was then sequentially dilated to a maximum of 16 Cook and a hysteroscope was inserted into the uterine cavity normal saline as the distention medium with the above-noted findings. Hysteroscope was removed and a banjo curette was inserted into the uterus and all 4 quadrants of the uterine cavity were curetted until minimal tissue returned. The tenaculum site was was treated with the application with Silver Nitrate with excellent hemostasis achieved. All instruments were removed from the vagina. Patient was awakened and transported to recovery area in stable condition. All sponge lap needle counts correct x2
[2021-07-23] MEDS: oxyCODONE 5 mg/Acetaminophen 325 mg TAB PO (11:45)
[2021-07-23 11:50] VITALS: BP 142/88; PULSE 69; RESP 16; TEMP 36.5; O2SAT 98
[2021-07-23 12:15] VITALS: BP 144/92; PULSE 75; RESP 16; TEMP 36.5; O2SAT 99
--- NOTE | 2021-07-23 12:23 | W.ANESPOSTOP ---
Postoperative Evaluation Date, Time and Location Date Performed: 07/23/21 Time Performed: 11:45 Patient Location: Day Surgery Unit Vital Signs Most Recent Imported Vital Signs: Most Recent Vital Signs Temp Pulse Resp BP Pulse Ox 36.5 C 69 16 142/88 H 98 07/23/21 11:50 07/23/21 11:50 07/23/21 11:50 07/23/21 11:50 07/23/21 11:50 Pain Score Most Recent Pain Score: Most Recent Pain Score Pain Level 5 07/23/21 11:50 Assessment Mental Status: Awake (Alert & Oriented to Patient Baseline) Airway and Respiratory Function: Patent airway with normal (patient baseline) respiratory exam Cardiovascular Function: Hemodynamically Stable Hydration Status: Adequately Hydrated Nausea & Vomiting: No Nausea or Vomiting Pain: Pain is tolerable per patient Peripheral Nerve Block: Patient did not receive a nerve block
== END 2021-07-23 12:27 | disposition home or self-care (01) ==
PROVIDERS: PCP Family Medicine; Visit Provider Obstetrics & Gynecology Gynecology
PROC: 0UJD8ZZ Inspection of Uterus and Cervix, Via Natural or Artificial Opening Endoscopic (ICD-10-PCS; CPT 58555; principal; 2021-07-23 08:45)
DX: N95.0 Postmenopausal bleeding (principal); N85.8 Other specified noninflammatory disorders of uterus; Z12.4 Encounter for screening for malignant neoplasm of cervix; Z11.51 Encounter for screening for human papillomavirus (HPV)
CPT/HCPCS: 58558; 88142; 88305; 87624; J1100; J1885; J2001; J2405

== ENCOUNTER 2021-08-05 02:41 | Outpatient (CLI) | payer OTHER, MEDICAID, SELFPAY ==
--- NOTE | 2021-08-05 07:15 | DI.US_ITS ---
Exam(s) US RENAL EXAM: US RENAL CLINICAL HISTORY: monitor known stone (left lower pole),n20.0 TECHNIQUE: Ultrasound performed using standard protocol. COMPARISON: CT CT ABDOMEN PELVIS WO from 08/27/2020 US US RENAL from 02/04/2021 FINDINGS: Renal ultrasound was performed according to the usual protocol. The kidneys are normal in size and s hape. There is no evidence of hydronephrosis. There is poorly defined echogenic focus in the lower pole of the left kidney, there is posterior acou stic shadowing although no twinkle artifact is seen. This corresponds in location to a previously no tanya left renal calculus seen on CT of August 2020. This measures about 7 millimeters in diameter. Urinary bladder is unremarkable in appearance with pre and postvoid urinary bladder volume measuremen ts 112 cc and 38 cc respectively. Ureteral jets were noted bilaterally. IMPRESSION: Probable nonobstructing lower pole left renal calculus. No evidence of hydronephrosis. DATA REPOSITORY:
== END 2021-08-05 03:01 ==
PROVIDERS: PCP Family Medicine; Visit Provider Urology
DX: N20.0 Calculus of kidney (principal)
CPT/HCPCS: 76770

== ENCOUNTER 2021-08-25 16:30 | Outpatient (REF) | payer OTHER, MEDICAID, SELFPAY ==
[2021-08-25 18:49] LABS: Calculated LDL 96 mg/dL (<100); Cholesterol 192 mg/dL (<200); HDL Cholesterol 43 mg/dL (40-60); Triglyceride 268 mg/dL (<150)
[2021-08-27 10:29] LABS: HIV-1/2 Ag & Ab Screen Negative (Negative)
[2021-08-28 10:54] LABS: dsDNA Ab, IgG 12.8 IU/mL (<30.0)
[2021-08-28 12:34] LABS: RNP Ab, IgG 4.2 Units (<20.0); SS-A Antibody 4.2 Units (<20.0); SS-B (La) Ab, IgG 4.8 Units (<20.0); Sm (Smith) Ab, IgG 3.2 Units (<20.0)
== END 2021-08-25 16:31 | disposition home or self-care (01) ==
LOC: NCHCN 16:30
PROVIDERS: PCP Family Medicine; Visit Provider Family Medicine
DX: R79.89 Other specified abnormal findings of blood chemistry (principal); E16.1 Other hypoglycemia; Z00.00 Encounter for general adult medical examination without abnormal findings; Z13.220 Encounter for screening for lipoid disorders; Z11.4 Encounter for screening for human immunodeficiency virus [HIV]
CPT/HCPCS: 80061; 87389; 86225; 86235

== ENCOUNTER 2021-11-17 17:06 | Outpatient (REF) | payer OTHER, MEDICAID, SELFPAY ==
[2021-11-22 12:06] LABS: Methylphenidate 86 ng/mL (Cutoff: 10); Ritalinic Acid 2159 ng/mL (Cutoff: 50)
== END 2021-11-17 17:07 | disposition home or self-care (01) ==
LOC: NCHCN 17:06
PROVIDERS: PCP Family Medicine; Visit Provider Family Medicine
DX: F90.9 Attention-deficit hyperactivity disorder, unspecified type (principal); Z79.899 Other long term (current) drug therapy
CPT/HCPCS: 80360

== ENCOUNTER → 2021-12-04 02:45 | Outpatient (CLI) | payer OTHER, MEDICAID, SELFPAY ==
--- NOTE | 2021-12-04 08:45 | DI.US_ITS ---
Exam(s) US RENAL EXAM: US RENAL CLINICAL HISTORY: monitor known kidney stone, calculus of kidney, N20.0. TECHNIQUE: Bolton scale, color and spectral Doppler were used. COMPARISON: CT CT ABDOMEN PELVIS WO from 08/27/2020 FINDINGS: Renal size in cm: Right: 10.4 left: 10.2 Echogenicity: Normal Hydronephrosis: No Cyst or mass: No Nephrolithiasis: 6 millimeter echogenic focus lower pole right kidney, stone versus artifact. 6 mill imeter echogenic focus superior pole left kidney, artifact versus stone. 6 millimeter echogenic focu s inferior pole left kidney, artifact versus stone. Prior CT showed a single stone at the lower pole of the left kidney.. Bladder:Normal Prevoid vol:85 Postvoid vol:17 IMPRESSION: Bilateral renal echogenic foci, stones versus artifacts. No hydronephrosis. DATA REPOSITORY:
== END ==
PROVIDERS: PCP Family Medicine; Visit Provider Urology
DX: N20.0 Calculus of kidney (principal)
CPT/HCPCS: 76770

== ENCOUNTER → 2021-12-09 14:28 | Outpatient (BNVA) | payer OTHER, MEDICAID, SELFPAY | PROVIDERS: PCP Family Medicine; Referring Provider Family Medicine; Visit Provider Urology | DX: N20.0 Calculus of kidney (principal) | CPT/HCPCS: 99213 ==

== ENCOUNTER 2021-12-18 15:28 | Outpatient (REF) | payer OTHER, MEDICAID, SELFPAY ==
[2021-12-18 14:48] LABS: TSH (W/Ref FT4) 2.17 uIU/mL (0.36-3.74)
== END 2021-12-18 15:29 | disposition home or self-care (01) ==
LOC: NCHCN 15:28
PROVIDERS: PCP Family Medicine; Visit Provider Family Medicine
DX: Z86.39 Personal history of other endocrine, nutritional and metabolic disease (principal)
CPT/HCPCS: 84443

== ENCOUNTER 2022-03-31 03:46 | Outpatient (CLI) | payer OTHER, MEDICAID, SELFPAY ==
[2022-03-31 13:41] LABS: Abs Immature Grans 0.01 10^3/uL (0.0-0.06); Absolute Basophil Count 0.03 10^3/uL (0.0-0.2); Absolute Eosinophil Count 0.09 10^3/uL (0.0-0.7); Absolute Lymphocyte Count 1.36 10^3/uL (1.2-3.4); Absolute Monocyte Count 0.38 10^3/uL (0.1-0.8); Absolute Neutrophil Count 2.03 10^3/uL (1.2-6.7); Basophils % 0.8; Eosinophils % 2.3; HCT 41.8 % (36.0-46.0); HGB 13.7 g/dL (11.2-15.7); Immature Grans % 0.3; Lymphocytes % 34.9; MCH 29.9 pg (27.0-33.0); MCHC 32.8 % (32.0-36.0); MCV 91 fL (80-95); MPV 10.4 fL (8.0-11.0); Monocytes % 9.7; Platelet Count 216 10^3/uL (130-400); RBC 4.58 10^6/uL (3.93-5.22); RDW 12.1 % (11.7-14.6); RDW-SD 40.5 fL
[2022-03-31 14:26] LABS: ALT 40 U/L (14-59); AST 21 U/L (15-37); Alkaline Phosphatase 76 U/L (46-116); Anion Gap 8.6 mmol/L (3-11); BUN 20 mg/dL (7-18); Bilirubin, Total 0.5 mg/dL (0.2-1.0); CO2 27.4 mmol/L (21.0-32.0); Calcium 9.4 mg/dL (8.5-10.1); Chloride 108 mmol/L (98-107); Estimated GFR 61.75 (mL/min/1.73m2); Glucose 108 mg/dL (74-106); Potassium 4.1 mmol/L (3.5-5.1); Sodium 144 mmol/L (136-145); Total Protein 7.3 g/dL (6.4-8.2)
[2022-03-31 15:04] LABS: Folate 19.1 ng/mL (8.6-20.0); Vitamin B12 1536 pg/mL (193-986)
[2022-03-31 17:44] LABS: FREE T4 0.96 ng/dL (0.76-1.46); TSH 1.75 uIU/mL (0.36-3.74)
[2022-03-31 22:21] LABS: T3,Free 5.4 pg/mL (2.8-5.3)
[2022-03-31 22:35] LABS: T3, Total 149 ng/dL (97-169)
[2022-04-02 10:07] LABS: T3 (Triiodothyronine) Reverse 18 ng/dL (10-24)
== END 2022-03-31 03:47 | disposition home or self-care (01) ==
LOC: LBO 03:47
PROVIDERS: PCP Family Medicine; Visit Provider Acupuncturist
DX: R53.83 Other fatigue (principal); F41.8 Other specified anxiety disorders; M79.7 Fibromyalgia; R68.89 Other general symptoms and signs; Z79.899 Other long term (current) drug therapy
CPT/HCPCS: 36415; 80053; 82607; 82746; 84439; 84443; 84480; 84481; 84482; 85025

== ENCOUNTER 2022-06-01 01:47 | Outpatient (CLI) | payer OTHER, MEDICAID, SELFPAY ==
--- NOTE | 2022-06-01 07:45 | DI.US_ITS ---
Exam(s) US RENAL EXAM: US RENAL CLINICAL HISTORY: monitor known left lower pole stone,N20.0. TECHNIQUE: Bolton scale, color and spectral Doppler were used. COMPARISON: CT CT ABDOMEN PELVIS WO from 08/27/2020 CT,NM,TMT NM MPI REST STRESS GRP from 06/16/2021 US US RENAL from 12/04/2021 FINDINGS: Renal size in cm: Right: 9.7 left: 10.5 Echogenicity: Normal Hydronephrosis: No Cyst or mass: No Nephrolithiasis: 9 millimeter stone lower pole left kidney. Questionable 4 millimeter echogenic focu s, sternum versus artifact near the lower pole of the right kidney. No right-sided stone seen on raquel or CT. Bladder:Normal Prevoid vol:25 cc Postvoid vol: Not performed IMPRESSION: 9 millimeters stone lower pole left kidney. Question of a 4 millimeter stone lower pole right kidney versus artifact. DATA REPOSITORY:
== END 2022-06-01 02:07 ==
LOC: DI 01:47
PROVIDERS: PCP Family Medicine; Visit Provider Urology
DX: N20.0 Calculus of kidney (principal); N28.89 Other specified disorders of kidney and ureter
CPT/HCPCS: 76770

== ENCOUNTER 2022-06-01 14:23 | Outpatient (CLI) | payer OTHER, MEDICAID, SELFPAY ==
[2022-06-01 14:24] LABS: Abs Immature Grans 0.01 10^3/uL (0.0-0.06); Absolute Basophil Count 0.05 10^3/uL (0.0-0.2); Absolute Eosinophil Count 0.11 10^3/uL (0.0-0.7); Absolute Monocyte Count 0.38 10^3/uL (0.1-0.8); Absolute Neutrophil Count 2.76 10^3/uL (1.2-6.7); Basophils % 1.1; Eosinophils % 2.3; HCT 43.5 % (36.0-46.0); HGB 14.4 g/dL (11.2-15.7); Immature Grans % 0.2; Lymphocytes % 29.7; MCH 30.2 pg (27.0-33.0); MCHC 33.1 % (32.0-36.0); MCV 91 fL (80-95); MPV 10.4 fL (8.0-11.0); Monocytes % 8.1; Neutrophils % 58.6; Platelet Count 245 10^3/uL (130-400); RBC 4.77 10^6/uL (3.93-5.22); RDW-SD 40.5 fL; WBC 4.71 10^3/uL (4.4-10.8)
[2022-06-01 14:58] LABS: ALT 60 U/L (14-59); Albumin 4.2 g/dL (3.4-5.0); Alkaline Phosphatase 84 U/L (46-116); Anion Gap 8.5 mmol/L (3-11); BUN 20 mg/dL (7-18); Bilirubin, Total 0.6 mg/dL (0.2-1.0); CO2 25.5 mmol/L (21.0-32.0); CREATININE 1.1 mg/dL (0.55-1.02); Chloride 104 mmol/L (98-107); Estimated GFR 55.07 (mL/min/1.73m2); Glucose 161 mg/dL (74-106); Potassium 3.9 mmol/L (3.5-5.1); Sodium 138 mmol/L (136-145); Total Protein 7.3 g/dL (6.4-8.2)
[2022-06-01 15:18] LABS: AST 9 U/L (15-37)
[2022-06-02 09:37] LABS: HBs Antibody, Quant <3.1 mIU/mL (See Note); Hepatitis B Surface Ab Negative (See Note)
[2022-06-02 10:14] LABS: Hep B Core Antibody Negative (Negative)
[2022-06-02 11:16] LABS: Hepatitis B Surface Ag Negative (Negative)
[2022-06-02 11:46] LABS: Hepatitis C Ab w Rflx HCV PCR Negative (Negative)
== END 2022-06-01 14:24 | disposition home or self-care (01) ==
LOC: LBO 14:25
PROVIDERS: PCP Family Medicine; Visit Provider Student in an Organized Health Care Education/Training Program
DX: Z79.899 Other long term (current) drug therapy (principal); L90.0 Lichen sclerosus et atrophicus
CPT/HCPCS: 36415; 80053; 86704; 86706; 86803; 87340; 85025

== ENCOUNTER 2022-06-12 03:17 | Outpatient (CLI) | payer OTHER, MEDICAID, SELFPAY ==
[2022-06-12 14:32] LABS: Abs Immature Grans 0.01 10^3/uL (0.0-0.06); Absolute Basophil Count 0.05 10^3/uL (0.0-0.2); Absolute Eosinophil Count 0.16 10^3/uL (0.0-0.7); Absolute Lymphocyte Count 1.41 10^3/uL (1.2-3.4); Absolute Monocyte Count 0.43 10^3/uL (0.1-0.8); Eosinophils % 3.1; HCT 43.6 % (36.0-46.0); HGB 14.3 g/dL (11.2-15.7); Immature Grans % 0.2; Lymphocytes % 27.3; MCH 30.4 pg (27.0-33.0); MCHC 32.8 % (32.0-36.0); MCV 93 fL (80-95); MPV 10.3 fL (8.0-11.0); Monocytes % 8.3; Neutrophils % 60.1; Platelet Count 229 10^3/uL (130-400); RBC 4.71 10^6/uL (3.93-5.22); RDW 12.2 % (11.7-14.6); RDW-SD 41.4 fL; WBC 5.16 10^3/uL (4.4-10.8)
[2022-06-12 16:49] LABS: ALT 48 U/L (14-59); AST 26 U/L (15-37); Albumin 4.1 g/dL (3.4-5.0); Alkaline Phosphatase 84 U/L (46-116); Anion Gap 8.5 mmol/L (3-11); BUN 21 mg/dL (7-18); Bilirubin, Total 0.6 mg/dL (0.2-1.0); CO2 27.5 mmol/L (21.0-32.0); Calcium 9.4 mg/dL (8.5-10.1); Chloride 105 mmol/L (98-107); Estimated GFR 61.75 (mL/min/1.73m2); Glucose 169 mg/dL (74-106); Potassium 4.7 mmol/L (3.5-5.1); Sodium 141 mmol/L (136-145); Total Protein 7.4 g/dL (6.4-8.2)
== END 2022-06-12 03:18 | disposition home or self-care (01) ==
LOC: LBO 03:17
PROVIDERS: Student in an Organized Health Care Education/Training Program; PCP Family Medicine; Visit Provider Family Medicine
DX: L90.0 Lichen sclerosus et atrophicus (principal); N20.0 Calculus of kidney
CPT/HCPCS: 36415; 80053; 99213; 99214; 85025

== ENCOUNTER 2022-06-12 22:00 | Outpatient (CLI) | payer OTHER, MEDICAID, SELFPAY ==
--- NOTE | 2022-06-12 15:15 | DI.RAD_ITS ---
Exam(s) XR ABDOMEN FLAT PLATE EXAM: 2D digital imaging was performed. CLINICAL HISTORY: CALCULUS OF KIDNEY, N20.0. COMPARISON: CT CT ABDOMEN PELVIS WO from 08/27/2020 CT,NM,TMT NM MPI REST STRESS GRP from 06/16/2021 CR XR DEXA BONE DENSITY W/WO AQUILES from 07/04/2021 TECHNIQUE: Supine views of the abdomen performed. FINDINGS: BOWEL GAS PATTERN: Nondistended. Large quantity of stool, greater on the right. A somewhat obscures visualization of the kidneys, right greater than left.. CALCIFICATIONS: 5 millimeter stone projecting at the lower pole of the left kidney. Question additio nal tiny stone projecting at the upper pole of the left kidney. OSSEOUS STRUCTURES: Degenerative changes lower lumbar spine. OTHER FINDINGS: None. IMPRESSION: 1. Nonobstructive bowel gas pattern. Large quantity of stool. 2. Left renal calculi. DATA REPOSITORY: RADIATION DOSE DELIVERED:
== END 2022-06-12 22:20 ==
LOC: DI 22:00
PROVIDERS: PCP Family Medicine; Visit Provider Urology
DX: N20.0 Calculus of kidney (principal); K59.09 Other constipation
CPT/HCPCS: 74018

== ENCOUNTER → 2022-06-18 07:46 | Outpatient (BNVA) | payer OTHER, MEDICAID, SELFPAY | PROVIDERS: PCP Family Medicine; Referring Provider Family Medicine; Visit Provider Urology | DX: N20.0 Calculus of kidney (principal) | CPT/HCPCS: 99443 ==

== ENCOUNTER 2022-06-24 03:21 | Outpatient (CLI) | payer OTHER, MEDICAID, SELFPAY ==
[2022-06-24 15:15] LABS: Abs Immature Grans 0.01 10^3/uL (0.0-0.06); Absolute Basophil Count 0.06 10^3/uL (0.0-0.2); Absolute Eosinophil Count 0.17 10^3/uL (0.0-0.7); Absolute Lymphocyte Count 1.41 10^3/uL (1.2-3.4); Absolute Monocyte Count 0.41 10^3/uL (0.1-0.8); Basophils % 1.5; Eosinophils % 4.3; HCT 44.2 % (36.0-46.0); Immature Grans % 0.3; Lymphocytes % 35.6; MCH 31.3 pg (27.0-33.0); MCHC 33.9 % (32.0-36.0); MCV 92 fL (80-95); MPV 10.3 fL (8.0-11.0); Monocytes % 10.4; Neutrophils % 47.9; Platelet Count 274 10^3/uL (130-400); RBC 4.79 10^6/uL (3.93-5.22); RDW 12.4 % (11.7-14.6); WBC 3.96 10^3/uL (4.4-10.8)
[2022-06-24 15:39] LABS: ALT 33 U/L (14-59); AST 19 U/L (15-37); Albumin 4.3 g/dL (3.4-5.0); Alkaline Phosphatase 85 U/L (46-116); Anion Gap 4.7 mmol/L (3-11); BUN 20 mg/dL (7-18); Bilirubin, Total 0.4 mg/dL (0.2-1.0); CO2 31.3 mmol/L (21.0-32.0); CREATININE 1.1 mg/dL (0.55-1.02); Calcium 9.4 mg/dL (8.5-10.1); Chloride 104 mmol/L (98-107); Estimated GFR 55.07 (mL/min/1.73m2); Glucose 106 mg/dL (74-106); Sodium 140 mmol/L (136-145); Total Protein 7.6 g/dL (6.4-8.2)
== END 2022-06-24 03:22 | disposition home or self-care (01) ==
PROVIDERS: Referring Provider Student in an Organized Health Care Education/Training Program; Visit Provider Student in an Organized Health Care Education/Training Program
DX: L90.0 Lichen sclerosus et atrophicus (principal)
CPT/HCPCS: 36415; 80053; 85025

== ENCOUNTER 2022-07-07 02:26 | Outpatient (CLI) | payer OTHER, MEDICAID, SELFPAY ==
--- NOTE | 2022-07-07 06:30 | DI.CT_ITS ---
Exam(s) CT ABDOMEN PELVIS WO EXAM: CT ABDOMEN PELVIS WO CLINICAL HISTORY: ? left stone on recent US,CALCULUS,N20.0. TECHNIQUE: Imaging Protocol: Axial computed tomography images with coronal and sagittal reformatted images were created and reviewed CONTRAST MATERIAL: Intravenous: none Oral: None COMPARISON: CT CT ABDOMEN PELVIS WO from 08/27/2020 FINDINGS: VISUALIZED LUNG BASES: No nodules nor pleural effusions evident. ABDOMEN: There is no ascites. LIVER: There is a well-defined hypodensity in the right hepatic lobe measuring 9 x 8mm, previously pr esent. This is most probably benign cyst. Another smaller 3 millimeter hypodensity more inferiorly in the right hepatic lobe is also unchanged and has benign appearance. There are no obvious dilated intrahepatic ducts. GALLBLADDER/BILIARY: No obvious gallbladder pathology. CBD is not dilated. PANCREAS: No evidence of pancreatic mass nor dilatation of the pancreatic duct. SPLEEN: Spleen is not enlarged. No obvious intrasplenic lesions. ADRENALS: There are no significant adrenal masses. KIDNEYS:Right kidney unremarkable. There are 2 calculi in the left kidney. One is in the superior p ole and the other is in the inferior pole. The inferior pole density is the larger calculus and [place] ures 6 x 4 millimeters. This was previously present. The smaller superior pole calculus measures 3 millimeters and was not evident on the prior study. There is no hydronephrosis nor hydroureter. The re are no obvious calculi seen in the nondilated ureters nor within the nondistended urinary bladder. . ABDOMINAL AORTA: Abdominal aorta is not enlarged. LYMPH NODES: There is no retroperitoneal nor paraaortic adenopathy. ABDOMINAL WALL: No evidence of significant anterior abdominal wall nor inguinal hernia. GI: There is no evidence of bowel obstruction, free air, nor abscess. PELVIS: LYMPH NODES: There is no intrapelvic nor inguinal adenopathy. GI: No evidence of appendicitis.No evidence of sigmoid diverticulitis. URINARY BLADDER: No calculi nor obvious masses evident REPRODUCTIVE: Densities in the right side of the uterus are probably calcified uterine fibroids. The ovaries are not identified as separate structures on this study. There is no fluid fluid in the pel vis. OSSEOUS: No fractures nor significant osseous lesions. Calcifications noted in the non diminished L5 -S1 disc space. IMPRESSION: 1. There are 2 intrarenal calculi in left kidney as described above, with the larger calculus measuri ng approximately 6 x 4 millimeters. Smaller calculus measures 3 millimeters. There are no calculi w ithin the nondilated ureters nor within the nondistended urinary bladder. No hydronephrosis. 2. Right-sided uterine fibroids again noted. No abnormal adnexal masses nor free fluid in the pelvis . 3. Benign-appearing unchanged small liver cysts. RADIATION DOSE DELIVERED: 657.65mGy.cm Total DLP DATA REPOSITORY: All CT scans at this facility are submitted to the National Radiology Data Registry (NRDR) Dose Index Registry (DIR) with the [employer] ([employer]). RADIATION OPTIMIZATION: All CT scans at this facility use at least one of these dose optimization te chniques: automated exposure control; mA and/or kV adjustment per patient size (includes targeted exa ms where dose is matched to clinical indication); or iterative reconstruction.
== END 2022-07-07 02:46 ==
PROVIDERS: PCP Family Medicine; Visit Provider Urology
DX: N20.0 Calculus of kidney (principal); K76.89 Other specified diseases of liver; D25.9 Leiomyoma of uterus, unspecified
CPT/HCPCS: 74176

== ENCOUNTER → 2022-07-16 15:20 | Outpatient (BNVA) | payer OTHER, MEDICAID, SELFPAY | PROVIDERS: PCP Family Medicine; Referring Provider Family Medicine; Visit Provider Urology | DX: N20.0 Calculus of kidney (principal) | CPT/HCPCS: 99214 ==

== ENCOUNTER 2022-07-22 13:14 | Outpatient (REF) | payer OTHER, MEDICAID, SELFPAY ==
[2022-07-22 14:28] LABS: CLEAVED CELLS 110 mmol/24h (40-220); Creatinine,24hr Ur 1.28 g/24hr (0.60-1.80); Creatinine,Urine 58.04 mg/dL; Sodium, Urine 50 mmol/L; Total Volume 2200 ml
[2022-07-23 10:02] LABS: Calcium Urine 7.2 mg/dL (See Note); Calcium Urine 24 hr 158 mg/24hrs (100-300); Timed Urine Volume 2200 mL
[2022-07-23 10:22] LABS: Magnesium Random Urine 8.5 mg/dL (See Note); Timed Urine Volume 2200 mL; Uric Acid Urine 29.5 mg/dL (See Note); Uric Acid Urine 24hr 649 mg/24hrs (250-750)
[2022-07-24 10:14] LABS: Citrate Excretion, 24hr, U 1109 mg/24 h; Urine Volume 2200 mL
[2022-07-24 14:43] LABS: Oxalate, U 0.48 mmol/24 h; Oxalate, U 42.2 mg/24 h (9.7 - 40.5); Urine Volume 2200 mL
== END 2022-07-22 13:15 | disposition home or self-care (01) ==
LOC: LBN 13:14
PROVIDERS: PCP Family Medicine; Visit Provider Urology
DX: N20.0 Calculus of kidney (principal)
CPT/HCPCS: 82507; 83735; 81050; 82340; 82570; 83945; 84300; 84560

== ENCOUNTER 2022-08-21 02:33 | Outpatient (CLI) | payer OTHER, MEDICAID, SELFPAY ==
[2022-08-21 13:18] LABS: Abs Immature Grans 0.01 10^3/uL (0.0-0.06); Absolute Basophil Count 0.04 10^3/uL (0.0-0.2); Absolute Eosinophil Count 0.07 10^3/uL (0.0-0.7); Absolute Lymphocyte Count 1.02 10^3/uL (1.2-3.4); Absolute Monocyte Count 0.39 10^3/uL (0.1-0.8); Absolute Neutrophil Count 3.34 10^3/uL (1.2-6.7); Basophils % 0.8; Eosinophils % 1.4; HCT 42.9 % (36.0-46.0); HGB 14.2 g/dL (11.2-15.7); Immature Grans % 0.2; Lymphocytes % 20.9; MCH 30.3 pg (27.0-33.0); MCHC 33.1 % (32.0-36.0); MCV 92 fL (80-95); MPV 10.8 fL (8.0-11.0); Neutrophils % 68.7; Platelet Count 219 10^3/uL (130-400); RBC 4.69 10^6/uL (3.93-5.22); RDW 12.4 % (11.7-14.6); RDW-SD 41.4 fL; WBC 4.87 10^3/uL (4.4-10.8)
[2022-08-21 13:54] LABS: ALT 33 U/L (14-59); AST 19 U/L (15-37); Albumin 4.2 g/dL (3.4-5.0); Alkaline Phosphatase 80 U/L (46-116); Anion Gap 10.1 mmol/L (3-11); BUN 14 mg/dL (7-18); Bilirubin, Total 0.5 mg/dL (0.2-1.0); CO2 26.9 mmol/L (21.0-32.0); Calcium 9.7 mg/dL (8.5-10.1); Chloride 106 mmol/L (98-107); Estimated GFR 61.75 (mL/min/1.73m2); Glucose 155 mg/dL (74-106); Potassium 3.8 mmol/L (3.5-5.1); Sodium 143 mmol/L (136-145); Total Protein 7.3 g/dL (6.4-8.2)
== END 2022-08-21 02:34 | disposition home or self-care (01) ==
PROVIDERS: PCP Family Medicine; Visit Provider Student in an Organized Health Care Education/Training Program
DX: L90.0 Lichen sclerosus et atrophicus (principal)
CPT/HCPCS: 36415; 80053; 85025

== ENCOUNTER → 2022-08-24 13:02 | Outpatient (BNVA) | payer OTHER, MEDICAID, SELFPAY | PROVIDERS: PCP Family Medicine; Referring Provider Family Medicine; Visit Provider Urology | DX: N20.0 Calculus of kidney (principal) | CPT/HCPCS: 99442 ==

== ENCOUNTER 2022-09-18 12:49 | Outpatient (CLI) | payer OTHER, MEDICAID, SELFPAY | END 2022-09-18 12:50 | disposition home or self-care (01) | LOC: PUVA 12:54 | PROVIDERS: PCP Family Medicine; Visit Provider Dermatology | DX: L90.0 Lichen sclerosus et atrophicus (principal) | CPT/HCPCS: 96900 ==

== ENCOUNTER 2022-09-21 12:56 | Outpatient (CLI) | payer OTHER, MEDICAID, SELFPAY | END 2022-09-21 12:57 | disposition home or self-care (01) | LOC: PUVA 12:57 | PROVIDERS: PCP Family Medicine; Visit Provider Dermatology | DX: L90.0 Lichen sclerosus et atrophicus (principal) | CPT/HCPCS: 96900 ==

== ENCOUNTER 2022-09-22 13:00 | Outpatient (CLI) | payer OTHER, MEDICAID, SELFPAY | END 2022-09-22 13:01 | disposition home or self-care (01) | LOC: PUVA 13:00 | PROVIDERS: PCP Family Medicine; Visit Provider Dermatology | DX: L90.0 Lichen sclerosus et atrophicus (principal) | CPT/HCPCS: 96900 ==

== ENCOUNTER 2022-09-25 07:25 | Outpatient (CLI) | payer OTHER, MEDICAID, SELFPAY | END 2022-09-25 07:26 | disposition home or self-care (01) | LOC: PUVA 07:26 | PROVIDERS: PCP Family Medicine; Visit Provider Dermatology | DX: L90.0 Lichen sclerosus et atrophicus (principal) | CPT/HCPCS: 96900 ==

== ENCOUNTER 2022-09-28 12:18 | Outpatient (CLI) | payer OTHER, MEDICAID, SELFPAY | END 2022-09-28 12:19 | disposition home or self-care (01) | LOC: PUVA 12:19 | PROVIDERS: PCP Family Medicine; Visit Provider Dermatology | DX: L90.0 Lichen sclerosus et atrophicus (principal) | CPT/HCPCS: 96900 ==

== ENCOUNTER 2022-10-05 15:05 | Outpatient (REF) | payer OTHER, MEDICAID, SELFPAY ==
[2022-10-05 20:00] LABS: ALT 40 U/L (14-59); AST 23 U/L (15-37); Albumin 4.2 g/dL (3.4-5.0); Alkaline Phosphatase 76 U/L (46-116); Anion Gap 7.9 mmol/L (3-11); BUN 15 mg/dL (7-18); Bilirubin, Total 0.6 mg/dL (0.2-1.0); CO2 27.1 mmol/L (21.0-32.0); CREATININE 1.1 mg/dL (0.55-1.02); Calcium 9.7 mg/dL (8.5-10.1); Chloride 106 mmol/L (98-107); Estimated GFR 55.07 (mL/min/1.73m2); FREE T4 0.99 ng/dL (0.76-1.46); Glucose 101 mg/dL (74-106); Potassium 4.2 mmol/L (3.5-5.1); Sodium 141 mmol/L (136-145); TSH 1.26 uIU/mL (0.36-3.74); Total Protein 7.1 g/dL (6.4-8.2)
[2022-10-06 17:47] LABS: T3, Total 175 ng/dL (97-169)
[2022-10-06 19:31] LABS: Parathyroid Hormone,Intact 29 pg/mL (19-88)
== END 2022-10-05 15:06 | disposition home or self-care (01) ==
LOC: NCHCN 15:05
PROVIDERS: PCP Family Medicine; Visit Provider Nurse Practitioner Family
DX: R13.10 Dysphagia, unspecified (principal); Z86.39 Personal history of other endocrine, nutritional and metabolic disease; J02.9 Acute pharyngitis, unspecified
CPT/HCPCS: 80053; 83970; 84439; 84443; 84480

== ENCOUNTER 2022-11-18 04:38 | Outpatient (CLI) | payer OTHER, MEDICAID, SELFPAY ==
[2022-11-18 16:33] LABS: Abs Immature Grans 0.01 10^3/uL (0.0-0.06); Absolute Basophil Count 0.06 10^3/uL (0.0-0.2); Absolute Eosinophil Count 0.16 10^3/uL (0.0-0.7); Absolute Lymphocyte Count 1.44 10^3/uL (1.2-3.4); Absolute Monocyte Count 0.48 10^3/uL (0.1-0.8); Absolute Neutrophil Count 2.58 10^3/uL (1.2-6.7); Basophils % 1.3; Eosinophils % 3.4; HCT 41.6 % (36.0-46.0); HGB 13.9 g/dL (11.2-15.7); Immature Grans % 0.2; Lymphocytes % 30.4; MCHC 33.4 % (32.0-36.0); MCV 93 fL (80-95); MPV 10.6 fL (8.0-11.0); Monocytes % 10.1; Neutrophils % 54.6; Platelet Count 250 10^3/uL (130-400); RBC 4.49 10^6/uL (3.93-5.22); RDW 12.3 % (11.7-14.6); RDW-SD 41.8 fL; WBC 4.73 10^3/uL (4.4-10.8)
[2022-11-18 17:08] LABS: ALT 51 U/L (14-59); AST 22 U/L (15-37); Albumin 4.1 g/dL (3.4-5.0); Alkaline Phosphatase 78 U/L (46-116); Anion Gap 9.3 mmol/L (3-11); BUN 18 mg/dL (7-18); Bilirubin, Total 0.5 mg/dL (0.2-1.0); CO2 25.7 mmol/L (21.0-32.0); CREATININE 0.9 mg/dL (0.55-1.02); Calcium 9.3 mg/dL (8.5-10.1); Chloride 107 mmol/L (98-107); Estimated GFR 70.07 (mL/min/1.73m2); Glucose 141 mg/dL (74-106); Potassium 4.2 mmol/L (3.5-5.1); Sodium 142 mmol/L (136-145); Total Protein 7.2 g/dL (6.4-8.2)
== END 2022-11-18 04:39 | disposition home or self-care (01) ==
PROVIDERS: PCP Family Medicine; Visit Provider Student in an Organized Health Care Education/Training Program
DX: L90.0 Lichen sclerosus et atrophicus (principal); Z79.899 Other long term (current) drug therapy
CPT/HCPCS: 36415; 80053; 85025

== ENCOUNTER → 2023-02-16 02:06 | Outpatient (CLI) | payer OTHER, MEDICAID, SELFPAY ==
--- NOTE | 2023-02-16 06:45 | DI.US_ITS ---
Exam(s) US RENAL EXAM: US RENAL CLINICAL HISTORY: monitor known stones,kidney calculus,n20.0 TECHNIQUE: Ultrasound of both kidneys performed using standard protocol. COMPARISON: US US RENAL from 06/01/[address] ABDOMEN PELVIS WO from 07/07/2022 FINDINGS: RIGHT KIDNEY: Measures 9.6 cm in length. No cysts evident. Normal cortical thickness and corticomedullary different iation .No solid masses There is a 5 mm nonobstructive mid pole calculus LEFT KIDNEY: Measures 10.4 cm in length. No cysts evident. Normal cortical thickness and corticomedullary differe ntiaion. No solids masses. There are 2 calculi. The larger is in the inferior pole and measures 12 x 6 mm. The 2nd calculus is in the upper pole calyx region and measures 7 x 5 mm. No hydronephrosis . URINARY BLADDER: Prevoid volume is 549 cc Postvoid volume is 55 cc No evidence of bladder mass nor diverticuli. Ureterovesical jets: Both identified and appear symmetrical IMPRESSION: 1. Bilateral nonobstructive calculi as described above. The largest calculus is in the lower pole t he left kidney and measures approximately 12 x 6 mm. 2. I note that the solitary calculus in the right kidney was not evident on prior CT scan of June 2022. 3. No concerning renal masses. No mass evident in the urinary bladder. DATA REPOSITORY:
== END ==
PROVIDERS: PCP Family Medicine; Visit Provider Urology
DX: N20.0 Calculus of kidney (principal)
CPT/HCPCS: 76770

== ENCOUNTER → 2023-02-23 10:26 | Outpatient (BNVA) | payer OTHER, MEDICAID, SELFPAY | PROVIDERS: PCP Family Medicine; Referring Provider Family Medicine; Visit Provider Urology ==

== ENCOUNTER → 2023-02-23 13:43 | Outpatient (CLI) | payer OTHER, MEDICAID, SELFPAY ==
--- NOTE | 2023-02-23 11:32 | DI.RAD_ITS ---
Exam(s) XR ABDOMEN FLAT PLATE EXAM: 2D digital imaging was performed. CLINICAL HISTORY: CALCULUS OF KIDNEY-N20.0. COMPARISON: CT CT ABDOMEN PELVIS WO from 07/07/2022 TECHNIQUE: Supine views of the abdomen performed. FINDINGS: BOWEL GAS PATTERN: Nondistended. CALCIFICATIONS: 5 millimeter stone upper pole left kidney. 7 millimeter stone lower pole left kidney . No right renal calculi are visible. No calcifications visible along the course of the ureters or bladder. OSSEOUS STRUCTURES: Normal for age. OTHER FINDINGS: None. IMPRESSION: 1. Nonobstructive bowel gas pattern. 2. Left upper and lower pole renal calculi. DATA REPOSITORY: RADIATION DOSE DELIVERED:
== END ==
PROVIDERS: PCP Family Medicine; Visit Provider Urology
DX: N20.0 Calculus of kidney (principal)
CPT/HCPCS: 99213; 74018

== ENCOUNTER 2023-03-04 04:05 | Outpatient (CLI) | payer OTHER, MEDICAID, SELFPAY ==
[2023-03-04 13:06] LABS: Abs Immature Grans 0.01 10^3/uL (0.0-0.06); Absolute Basophil Count 0.05 10^3/uL (0.0-0.2); Absolute Lymphocyte Count 1.12 10^3/uL (1.2-3.4); Absolute Monocyte Count 0.36 10^3/uL (0.1-0.8); Absolute Neutrophil Count 2.36 10^3/uL (1.2-6.7); Basophils % 1.3; Eosinophils % 2.5; HCT 41.4 % (36.0-46.0); HGB 14.1 g/dL (11.2-15.7); Immature Grans % 0.3; MCH 30.9 pg (27.0-33.0); MCHC 34.1 % (32.0-36.0); MCV 91 fL (80-95); MPV 10.9 fL (8.0-11.0); Neutrophils % 58.9; Platelet Count 213 10^3/uL (130-400); RBC 4.56 10^6/uL (3.93-5.22); RDW 11.7 % (11.7-14.6)
[2023-03-04 13:28] LABS: ALT 40 U/L (14-59); AST 18 U/L (15-37); Alkaline Phosphatase 71 U/L (46-116); BUN 20 mg/dL (7-18); Bilirubin, Total 0.3 mg/dL (0.2-1.0); Calcium 9.4 mg/dL (8.5-10.1); Chloride 104 mmol/L (98-107); Estimated GFR 61.75 (mL/min/1.73m2); Glucose 169 mg/dL (74-106); Potassium 3.6 mmol/L (3.5-5.1); Sodium 140 mmol/L (136-145); Total Protein 7.3 g/dL (6.4-8.2)
== END 2023-03-04 04:06 | disposition home or self-care (01) ==
PROVIDERS: PCP Family Medicine; Visit Provider Student in an Organized Health Care Education/Training Program
DX: L90.0 Lichen sclerosus et atrophicus (principal)
CPT/HCPCS: 36415; 80053; 85025

== ENCOUNTER 2023-03-10 19:48 | Emergency (ER) | payer OTHER, MEDICAID, SELFPAY ==
[2023-03-10] VITALS (8 sets, daily range): BP systolic 125–150; BP diastolic 62–83; PULSE 77–90; RESP 20; TEMP 36.7; O2SAT 96–99
--- NOTE | 2023-03-10 20:03 | W.ED.GENAD ---
Discharge Plan Disposition Patient Disposition: Home Discharge Details Clinical Impression: Acute left flank pain Primary Care Provider: Pao Kilgore ED Provider: Prem Quintero Home Meds and New Rx's Prescriptions: Continued methotrexate sodium 2.5 mg tablet 10 mg PO QWEEK cholecalciferol (vitamin D3) 50 mcg (2,000 unit) capsule 50 mcg PO DAILY (DME) FreeStyle Lite Strips 1 EACH strip 1 ea Miscellaneous DIRECTED (DME) lancets [FreeStyle Lancets] 1 EACH misc 1 ea Miscellaneous DIRECTED Centrum Silver 1 EACH tablet 1 ea PO DAILY Jacob Mag 3 cap PO DAILY methylphenidate HCl [Ritalin] 5 mg tablet 5 mg PO BID Rx Instructions: current med list: take 2-3 daily by mouth, MAX of 3 ascorbic acid (vitamin C) [Vitamin C] 500 mg tablet 500 mg PO DAILY clonazepam 0.5 mg tablet 0.5 mg PO TID levalbuterol tartrate [Xopenex HFA] 45 mcg/actuation HFA aerosol inhaler 2 inh inhalation Q4H PRN milk thistle seed extract 87.5 mg capsule 87.5 mg PO DAILY Rx Instructions: give with meal/snack propranolol 10 mg tablet 10 mg PO BID PRN desoximetasone 0.25 % ointment 1 applic TOPICAL PRN PRN Patient Comments: APPLY TO AFFECTED AREA(S) OF LICHEN SCLEROSIS ON GENITAL AREA TWO TIMES A DAY FOR 2 WEEKS; THEN TAKE A 5 DAY BREAK; REPEAT estradiol 0.01 % (0.1 mg/gram) cream 1 applic VAGINAL DAILY Patient Comments: APPLY A PEA SIZED AMOUNT ( 1 GRAM) VAGINALLY TWICE A WEEK. levomefolate calcium [L-Methylfolate] 7.5 mg Tablet 10 mg PO DAILY CombiPatch 0.05-0.14 mg/24 hr Patch Semiweekly 1 patch transdermal DIRECTED Rx Instructions: change twice weekly Discharge Instructions Instructions: Flank Pain (ED) Additional Instructions: You were seen in the emergency department for your flank pain. Your CAT scan showed no sign of any blocked kidney stones. Your blood work shows that your kidneys are working well. Please return to the emergency department if you cannot eat or drink as result of nausea vomiting or if you have any worsening pain in your flank. For your pain please take medications as follows: 1. Take acetaminophen (Tylenol), 1,000 mg (two 500 mg tabs) every 6 hours Discharge Data Discharge Date/Time-TO BE ENTERED AT DEPARTURE: 03/10/23 21:58 HPI General Date/Time Provider Initiated Documentation: 03/10/23 20:03. HPI Narrative: HPI This is a 67-year-old female with a history of left nephrolithiasis fibromyalgia now in the emergency department in the setting of left flank pain. Patient reports that she is due to see urology tomorrow. She reports that she was vacuuming when she developed flank pain. She describes this a pressure. It radiates down to her left groin. She denies dysuria frequency. No recent fevers chills nausea vomiting chest pain or shortness of breath. She describes her sensation as an ache. She has never had any surgeries in the past to her abdomen. She has not had any recent falls. She also denies any trauma to her back and abdomen. She denies routine tobacco, ethanol, and illicits. She is concerned that her symptoms represent a kidney stone. Exam General: Well-appearing in no acute distress speaking in complete sentences. Head: Normocephalic, atraumatic. Eye: Extraocular eye movements intact. No conjunctival injection. No scleral icterus. Ear, nose, mouth, throat: Grossly normal inspection. Normal voice, handling secretions normally. Neck: Trachea midline. Cardiovascular: Well-perfused distal extremities. Regular rate and rhythm. Respiratory: Nonlabored respiration. Clear lungs bilaterally. Gastrointestinal: Nondistended abdomen. Soft nontender. No rebound or guarding. Musculoskeletal: No edema. Moving all 4 extremities spontaneously. Skin: Normal for age and race, grossly normal temperature and turgor. No acute rash. Neurologic: Alert and appropriate, no apparent acute deficits. Psychiatric: Mood and manner are appropriate. Grooming and personal hygiene are appropriate. MDM This is an overall very well-appearing normothermic and not tachycardic 67-year-old female with a left sided flank pain radiating down into her groin concerning for the possibility of ureterolithiasis given history of nephrolithiasis. She has no obvious hydronephrosis on bedside ultrasound however will obtain a dry CT scan of her abdomen pelvis. Given pain radiates down into her groin my suspicion is low for PE as patient is neither tachycardic nor hypoxic and she is not having any chest pain. No dysuria nor frequency so doubt UTI. No rash to abdomen to suggest zoster. No diverticulitis suspicions based on no left lower quadrant tenderness nor diarrhea. No right lower quadrant tenderness to suggest appendicitis. No hypotension nor history of AAA to suggest aortic dissection. Not been vomiting no past surgical history so doubt SBO. Not recently with no left upper quadrant tenderness so doubt splenic arterial aneurysm. No pain out of proportion so doubt necrotizing soft tissue infection. Will reassess following labs and urinalysis and CT scan. No chest pain to suggest ACS so will defer ECG at this point time. 8:30 PM CBC showing no anemia no thrombocytopenia no leukocytosis. 9:15 PM Basic metabolic panel no MILES. No acute electrolyte abnormalities. Mild hyperglycemia. No anion gap. Not consistent with DKA. 9:31 PM Urinalysis nitrite negative not consistent with UTI. No hematuria. 9:[address] scan read as no acute process. Patient does have what appears to be a partially calcified fibroid which might explain her symptoms. This appears stable. However it is on the other side so not completely consistent with her symptoms. Chronic conditions affecting the care of the patient: Fibromyalgia History obtained from an outside historian: N/A External record review: Dermatology [place] [facility] [place] Medications: Acetaminophen for pain Social determinants of health affecting disposition: N/A Management discussed with: N/A Treatment/interventions considered: N/A Response to therapies provided: improved symtopoms sp acetaminophen Related Data Home Medications Medication Instructions Recorded Confirmed blood sugar diagnostic (FreeStyle 03/30/14 09/28/22 Lite Strips) lancets 28 gauge (FreeStyle 03/30/14 09/28/22 Lancets) Jacob Mag 3 cap PO DAILY 07/02/15 02/23/23 [id number]-fak-folcw acid 0.4 1 ea PO DAILY 07/02/15 02/23/23 mg-lycopene 300 mcg-lutein 250 mcg tablet (Centrum Silver) ascorbic acid (vitamin C) 500 mg 500 mg PO DAILY 08/21/19 02/23/23 tablet (Vitamin C) methylphenidate HCl 5 mg tablet 5 mg PO BID 08/21/19 02/23/23 (Ritalin) clonazepam 0.5 mg tablet 0.5 mg PO TID 07/10/20 02/23/23 levalbuterol tartrate 45 2 inh inhalation Q4H PRN 07/10/20 02/23/23 mcg/actuation aerosol inhaler (Xopenex HFA) milk thistle seed extract 87.5 mg 87.5 mg PO DAILY 07/10/20 02/23/23 capsule propranolol 10 mg tablet 10 mg PO BID PRN 08/22/20 02/23/23 cholecalciferol (vitamin D3) 50 50 mcg PO DAILY 07/16/21 02/23/23 mcg (2,000 unit) capsule methotrexate sodium 2.5 mg tablet 10 mg PO QWEEK 06/12/22 02/23/23 desoximetasone 0.25 % topical 1 applic topical PRN PRN 09/21/22 02/23/23 ointment estradiol 0.01% (0.1 mg/gram) 1 applic vaginal DAILY 09/21/22 02/23/23 vaginal cream estradiol 0.05 mg-norethindrone 1 patch transdermal DIRECTED 09/21/22 02/23/23 0.14 mg/24 hr semiwkly transderm patch (CombiPatch) levomefolate calcium 7.5 mg tablet 10 mg PO DAILY 09/21/22 02/23/23 (L-Methylfolate) Allergies Allergy/AdvReac Type Severity Reaction Status Date / Time meperidine HCl [From Demerol] Allergy Intermediate Other (See Verified 03/10/23 19:59 Comment) Sulfa (Sulfonamide Allergy Mild Nausea Verified 03/10/23 19:59 Antibiotics) Serotonin 5HT-3 Antagonists Allergy Unknown Other (See Verified 03/10/23 19:59 Comment) gluten Allergy Unverified 03/10/23 19:59 lactose Allergy Unverified 03/10/23 19:59 ciprofloxacin HCl AdvReac Unknown Nausea Verified 03/10/23 19:59 [From Cipro] General Stated Complaint: FlankPain VERONICA: 3 PFSH All Active Problems (Updated 03/10/23 @ 21:24 by Prem Quintero MD) Acute left flank pain (Acute) Sinusitis, acute (Acute) Rotator cuff arthropathy of left shoulder (Acute) Hair loss (Acute) Prediabetes (Acute) Graves disease (Acute) Fibromyalgia (Acute) Reactive hypoglycemia (Acute) Hemorrhoid (Acute) Perirectal abscess (Acute) Neutropenia (Acute) Dermatitis herpetiformis (Acute) Osteopenia (Acute) Calculus, kidney (Chronic) Menopausal state (Acute) Atrophic vaginitis (Acute) Preventative health care (Acute) Shoulder pain (Acute) Adhesive capsulitis of left shoulder (Acute) Bursitis of left shoulder (Acute) Impingement syndrome of left shoulder (Acute) Tendinitis of long head of biceps brachii of left shoulder (Acute) Left rotator cuff tear (Acute) Lichen sclerosus (Acute) Fibroids, submucosal (Acute) Medical History (Updated 03/10/23 @ 21:24 by Prem Quintero MD) ADD (attention deficit disorder) Hx of postmenopausal hormone replacement therapy 2013 Vaginal E2 cream for vaginal atrophy until 2013. Began CombiPatch till 06/2021. Began to have PMB. D&C pending. Hypoglycemia Pneumonia Postmenopausal bleeding 2021. while using combipatch since 2013. Primary fibromyalgia syndrome PTSD (post-traumatic stress disorder) Rosacea thyroid disease Surgical History (Updated 08/24/21 @ 17:06 by Tawny Hall MD) Hx of dilation and curettage 2013. For eval of PMB. Submucosal fibroid diagnosed. Not removed. 2021. Nl hysteroscopy D&C. Pt stopped HRT. Perirectal abscess drainage. Social History (Updated 07/16/21 @ 14:29 by Tawny Hall MD) Smoking/Tobacco Use Status: Never Second Hand Exposure: Yes Smoking risk assessment performed?: Yes Alcohol Intake: former Drug use: Never Substance use type: does not use Household members: none and other Housing: apartment Number of Children: 0 current occupation: disabled from fibromyalgia Sexually active: No (not in relationship x4yrs) What is your relationship status?: Panel score (0-1 are the most socially isolated patients): 0 Do you feel safe at home: Yes Additional Social history: lives alone Female Reproductive History Menstrual Menopause type: natural History History 2 Para Hx # Term Pregnancies Multiple births Hx # Pregnancies Ectopic pregnancies AB induced 2 Hx Number of Living Children AB spontaneous Course Vital Signs Vital signs: Vital Signs Temperature 36.7 C 03/10/23 19:53 Pulse 90 03/10/23 19:53 Respiratory Rate 20 03/10/23 19:53 Blood Pressure 150/83 H 03/10/23 19:53 Pulse Oximetry 99 03/10/23 19:53 Temperature 36.7 C 03/10/23 19:53 Temperature Source Oral 03/10/23 19:53 Pulse 90 03/10/23 19:53 Respiratory Rate 20 03/10/23 19:53 Respiratory Effort Normal 03/10/23 19:59 Blood Pressure 150/83 H 03/10/23 19:53 Blood Pressure Position Sitting 03/10/23 19:53 Pulse Oximetry 99 03/10/23 19:53 Oxygen Delivery Method Room Air 03/10/23 19:53 Oxygen Flow Rate 0 03/10/23 19:53 Pain Level 6 03/10/23 19:53 POCUS Exam (ED) Limited Retroperitoneal(Renal)Exam DATE OF EXAM: 03/10/23 TIME OF EXAM: 21:31 REASON FOR EXAM: Flank pain/left side VISUALIZED STRUCTURES: Left kidney, Right kidney and Other structures: Bladder PERTINENT FINDINGS/IMPRESSION: no hydronephrosis present INCIDENTAL FINDINGS: No hydronephrosis bilaterally. Exam complete
[2023-03-10 20:23] LABS: Abs Immature Grans 0.01 10^3/uL (0.0-0.06); Absolute Basophil Count 0.04 10^3/uL (0.0-0.2); Absolute Eosinophil Count 0.09 10^3/uL (0.0-0.7); Absolute Lymphocyte Count 1.58 10^3/uL (1.2-3.4); Absolute Monocyte Count 0.47 10^3/uL (0.1-0.8); Absolute Neutrophil Count 2.94 10^3/uL (1.2-6.7); Basophils % 0.8; Eosinophils % 1.8; HCT 41.9 % (36.0-46.0); HGB 13.8 g/dL (11.2-15.7); Immature Grans % 0.2; Lymphocytes % 30.8; MCH 30.5 pg (27.0-33.0); MCHC 32.9 % (32.0-36.0); MCV 93 fL (80-95); MPV 10.8 fL (8.0-11.0); Monocytes % 9.2; Neutrophils % 57.2; Platelet Count 224 10^3/uL (130-400); RBC 4.53 10^6/uL (3.93-5.22); RDW 11.9 % (11.7-14.6); RDW-SD 39.7 fL; WBC 5.13 10^3/uL (4.4-10.8)
--- NOTE | 2023-03-10 20:30 | DI.CT_ITS ---
Exam(s) CT RENAL COLIC WO EXAM: CT RENAL COLIC WO CLINICAL HISTORY: Left flank pain. TECHNIQUE: Imaging Protocol: Axial computed tomography images with coronal and sagittal reformatted images were created and reviewed CONTRAST MATERIAL: Intravenous: none Oral: None COMPARISON: CT CT ABDOMEN PELVIS WO from 07/07/2022 FINDINGS: VISUALIZED LUNG BASES: No nodules nor pleural effusions evident. ABDOMEN: There is no ascites. LIVER: Previously described small cysts in the liver are unchanged.. No obvious new intrahepatic fin dings on this non infused CT study. GALLBLADDER/BILIARY: No obvious gallbladder pathology. CBD is not dilated. PANCREAS: No evidence of pancreatic mass nor dilatation of the pancreatic duct. SPLEEN: Spleen is not enlarged. No obvious intrasplenic lesions. ADRENALS: There are no significant adrenal masses. KIDNEYS:There calculi in upper and lower poles of the left kidney. Both were also previously present on the CT scan of June 2022. No hydronephrosis nor hydroureter. No cysts nor solid renal masses. ABDOMINAL AORTA: Abdominal aorta is not enlarged. LYMPH NODES: There is no retroperitoneal nor paraaortic adenopathy. ABDOMINAL WALL: No evidence of significant anterior abdominal wall nor inguinal hernia. GI: There is no evidence of bowel obstruction, free air, nor abscess. PELVIS: LYMPH NODES: There is no intrapelvic nor inguinal adenopathy. GI: No evidence of appendicitis.No evidence of sigmoid diverticulitis. URINARY BLADDER: No calculi nor obvious masses evident REPRODUCTIVE: Calcified uterine fibroid again noted. Partially calcified lesion in the right ovary is also again noted, measuring 2 x 1.4 cm, unchanged. No left adnexal findings. No free fluid. OSSEOUS: No significant osseous lesions. IMPRESSION: 1. There are 2 radiopaque calculi in left kidney again noted, seen on prior CT scan of June 2022. There are no calculi in the nondilated ureters and urinary bladder. No hydronephrosis. No obvious nicolasa culi in the opposite-right kidney. 2. Partially calcified fibroid in the uterus again noted. Also partially calcified 2 x 1.4 cm nodule in right ovary again noted. No extraovarian adnexal masses and no free fluid. 3. Unchanged small benign-appearing liver cysts. RADIATION DOSE DELIVERED: 879.57mGy.cm Total DLP DATA REPOSITORY: All CT scans at this facility are submitted to the National Radiology Data Registry (NRDR) Dose Index Registry (DIR) with the [employer] (ACR). RADIATION OPTIMIZATION: All CT scans at this facility use at least one of these dose optimization te chniques: automated exposure control; mA and/or kV adjustment per patient size (includes targeted exa ms where dose is matched to clinical indication); or iterative reconstruction.
[2023-03-10] MEDS: Normal Saline 500 ML IV (20:38)
[2023-03-10 20:40] LABS: Anion Gap 8.4 mmol/L (3-11); BUN 14 mg/dL (7-18); CO2 27.6 mmol/L (21.0-32.0); CREATININE 1.1 mg/dL (0.55-1.02); Calcium 9.8 mg/dL (8.5-10.1); Chloride 106 mmol/L (98-107); Estimated GFR 55.07 (mL/min/1.73m2); Glucose 123 mg/dL (74-106); Potassium 3.8 mmol/L (3.5-5.1); Sodium 142 mmol/L (136-145)
[2023-03-10] MEDS: Acetaminophen 500 MG TAB 1000 MG PO (20:49)
[2023-03-10 21:26] LABS: Bilirubin Negative (Negative); Blood Negative (Negative); Clarity Clear (Clear); Glucose Negative (Negative); Ketones Negative (Negative); Leukocyte Esterase Negative (Negative); Nitrite Negative (Negative); Specific Gravity 1.015 (1.005-1.025); Urobilinogen 0.2 mg/dL (Up to 0.2)
--- NOTE | 2023-03-10 21:49 | DI.VRAD_ITS ---
PROCEDURE INFORMATION: Exam: CT Abdomen And Pelvis Without Contrast Exam date and time: 03/10/2023 8:49 PM Age: 67 years old Clinical indication: Other: Left flank pain TECHNIQUE: Imaging protocol: Computed tomography of the abdomen and pelvis without contrast. COMPARISON: CT ABDOMEN PELVIS WO 07/07/2022 8:02 AM FINDINGS: Liver: Stable 12 mm cyst in right lobe of liver. No mass. Gallbladder and bile ducts: Normal. No calcified stones. No ductal dilation. Pancreas: Normal. No ductal dilation. Spleen: Normal. No splenomegaly. Adrenal glands: Normal. No mass. Kidneys and ureters: Radiopaque 6 mm calculus in lower pole of left kidney. 3 mm calculus is present in upper pole. No radiopaque ureteric calculi. Punctate radiopacities in right kidney could represent calculi. No hydronephrosis or perinephric fat stranding. Stomach and bowel: No dilated loops of small bowel or colonic dilatation. Several colonic diverticula. Appendix: Normal appendix. Intraperitoneal space: Unremarkable. No free air. No significant fluid collection. Vasculature: Unremarkable. No abdominal aortic aneurysm. Lymph nodes: Unremarkable. No enlarged lymph nodes. Urinary bladder: Unremarkable as visualized. Reproductive: Anteverted uterus harbors ill-defined area of increased density in body region just to the right of midline measuring 1.5 cm. Stable, approximately 13 mm partially calcified lesion in right ovary. Bones/joints: The spine demonstrates mild degenerative changes at multiple levels. Soft tissues: Inguinal canals distended with fat. IMPRESSION: 1. Radiopaque calculi in left kidney. 2. Minute calculi can not be excluded in right kidney. 3. No obstructing renal or ureteric calculi. 4. Appearance of uterus consistent with it having undergone leiomyomatous change with formation of a partially calcified fibroid. Dictated and Authenticated by: Sebastien Johnson MD. Ordering:SHAWNA Amaro MD
== END 2023-03-10 21:58 | disposition home or self-care (01) ==
PROVIDERS: Emergency Provider Emergency Medicine; PCP Family Medicine
DX: M54.50 Low back pain, unspecified (principal); R10.9 Unspecified abdominal pain; Z87.442 Personal history of urinary calculi; R73.9 Hyperglycemia, unspecified; N20.0 Calculus of kidney; D25.9 Leiomyoma of uterus, unspecified; K76.89 Other specified diseases of liver
CPT/HCPCS: 76775; 80048; 96360; 99285; 74176; 81003; 85025; 99284

== ENCOUNTER → 2023-03-11 07:53 | Outpatient (BNVA) | payer OTHER, MEDICAID, SELFPAY | PROVIDERS: PCP Family Medicine; Referring Provider Family Medicine; Visit Provider Urology ==

== ENCOUNTER → 2023-03-12 07:51 | Outpatient (BNVA) | payer OTHER, MEDICAID, SELFPAY | PROVIDERS: PCP Family Medicine; Referring Provider Family Medicine; Visit Provider Urology | DX: N20.0 Calculus of kidney (principal) | CPT/HCPCS: 99442 ==

== ENCOUNTER 2023-03-31 21:16 | Outpatient (REF) | payer OTHER, MEDICAID, SELFPAY ==
[2023-03-31 21:34] LABS: ALT 46 U/L (14-59); AST 27 U/L (15-37); Albumin 3.9 g/dL (3.4-5.0); Alkaline Phosphatase 71 U/L (46-116); Anion Gap 8.5 mmol/L (3-11); BUN 21 mg/dL (7-18); Bilirubin, Total 0.4 mg/dL (0.2-1.0); CO2 24.5 mmol/L (21.0-32.0); CREATININE 1.1 mg/dL (0.55-1.02); Calcium 9.6 mg/dL (8.5-10.1); Chloride 107 mmol/L (98-107); Estimated GFR 54.73 (mL/min/1.73m2); Glucose 125 mg/dL (74-106); Potassium 4.2 mmol/L (3.5-5.1); Sodium 140 mmol/L (136-145); TSH (W/Ref FT4) 1.34 uIU/mL (0.36-3.74); Total Protein 6.8 g/dL (6.4-8.2)
== END 2023-03-31 21:17 | disposition home or self-care (01) ==
LOC: LBN 21:16
PROVIDERS: PCP Family Medicine; Visit Provider Physician Assistant Medical
DX: Z86.39 Personal history of other endocrine, nutritional and metabolic disease (principal); R35.0 Frequency of micturition
CPT/HCPCS: 80053; 84443

== ENCOUNTER 2023-04-22 19:47 | Emergency (ER) | payer OTHER, SELFPAY ==
[2023-04-22 19:58] VITALS: BP 159/89; PULSE 92; RESP 16; TEMP 36.5; O2SAT 97
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
[2023-04-22 23:25] VITALS: BP 132/75; PULSE 68; RESP 16; TEMP 36.8; O2SAT 99
== END 2023-04-22 23:42 | disposition home or self-care (01) ==
PROVIDERS: Emergency Provider Physician Assistant; PCP Family Medicine
DX: S01.01XA Laceration without foreign body of scalp, initial encounter (principal); V43.52XA Car driver injured in collision with other type car in traffic accident, initial encounter
CPT/HCPCS: 12001; 99284; 70450; 72125

== ENCOUNTER → 2023-05-31 01:29 | Outpatient (CLI) | payer OTHER, MEDICAID, SELFPAY ==
--- NOTE | 2023-05-31 07:45 | DI.US_ITS ---
Exam(s) US RENAL EXAM: US RENAL CLINICAL HISTORY: monitor known stone,kidney calculus,n20.0. TECHNIQUE: Bolton scale, color and spectral Doppler were used. COMPARISON: US US RENAL from 02/16/[address] RENAL COLIC WO from 03/10/2023 FINDINGS: Renal size in cm: Right: 10. Left: Endpoint. Echogenicity: Normal. Hydronephrosis: No. Cyst or mass: No. Nephrolithiasis: There is a 4 mm echogenic focus in the lower pole of the right kidney. There is a 9 mm echogenic focus in the midpole of the left kidney. Other findings: None. Bladder:Normal. Ureteral jets: Right: Visualized and unremarkable. Left: Visualized and unremarkable. Prevoid vol:198 cc Postvoid vol:34 cc Renal color flow: Symmetric and within normal limits. IMPRESSION: 1. Bilateral nephrolithiasis. No obstructive uropathy. 2. Small postvoid residual in the urinary bladder. DATA REPOSITORY:
== END ==
PROVIDERS: PCP Family Medicine; Visit Provider Urology
DX: N20.0 Calculus of kidney (principal); Z12.31 Encounter for screening mammogram for malignant neoplasm of breast
CPT/HCPCS: 76770

== ENCOUNTER → 2023-05-31 01:29 | Outpatient (CLI) | payer OTHER, MEDICAID, SELFPAY ==
--- NOTE | 2023-05-31 13:00 | DI.MAMMO_ITS ---
Exam(s) MAMMO SCREENING EXAM: MAMMO SCREENING CLINICAL HISTORY: SCREENING, Z12.39 TECHNIQUE: Bilateral full field digital CC and MLO mammographic images were obtained with 3D tomosyn thesis and utilizing computer aided detection (CAD). COMPARISON: Available for comparison. FINDINGS: Masses/Architectural Distortion: None seen. Microcalcifications: No suspicious pleomorphic-type are seen. Skin Thickening/Nipple Retraction: None. IMPRESSION: 1. No significant interval change with no specific features of malignancy noted. 2. Unless there is more urgent need, screening mammography is recommended, as per [place] [employer] guidelines. BI-RADS Category 1 - Negative Breast Density - Category C - Heterogeneously dense Breast density category C or D implies that the patient has dense breast tissue. Dense breast tissue is very common and is not abnormal but dense breast tissue can make it harder to find cancer on a ma mmogram. Also, dense breast tissue may increase their breast cancer risk. This information about the result of the mammogram report was provided to the patient to raise their awareness. Use this report when you speak with the patient about their risks for breast cancer, which includes their family hist ory. At that time, you may recommend for more screening tests (Ultrasound or MRI) as they might be us eful based on their risk. A negative radiographic report should not delay biopsy if a dominant or clinically suspicious mass is present. Up to ten percent of cancers are not identified on mammography. A negative report may reinforce clinical impression. Adenosis and dense breasts may obscure an underlying neoplasm. False positive reports average 6 to 10%. Patient will receive a letter notifying them of these results.
== END ==
PROVIDERS: PCP Family Medicine; Visit Provider Family Medicine
DX: Z12.31 Encounter for screening mammogram for malignant neoplasm of breast (principal)
CPT/HCPCS: 77063; 77067

== ENCOUNTER → 2023-06-02 10:42 | Outpatient (CLI) | payer OTHER, SELFPAY ==
--- NOTE | 2023-06-02 13:10 | DI.RAD_ITS ---
Exam(s) XR KNEE LT 3V AP,LAT,LAXMI EXAM: XR KNEE LT 3V AP,LAT,LAXMI CLINICAL HISTORY: LT KNEE PAIN, M25.562. TECHNIQUE: 2D digital imaging was performed of the left knee. Three images were obtained. AP, late ral and PA tunnel views were obtained. COMPARISON: There are no priors for comparison. FINDINGS: BONES: No acute fracture is present. No bony destructive lesion is seen. JOINTS: The knee is normally aligned. There is a small joint effusion. There is mild spurring of the posterior patella. There is mild narrowing of the medial femoral tibial joint. SOFT TISSUE: Normal. IMPRESSION: Mild degenerative changes of the left knee. Small joint effusion. DATA REPOSITORY: RADIATION DOSE DELIVERED:
== END ==
PROVIDERS: PCP Family Medicine; Visit Provider Family Medicine
DX: M17.12 Unilateral primary osteoarthritis, left knee (principal); M25.462 Effusion, left knee
CPT/HCPCS: 73562

== ENCOUNTER → 2023-06-03 09:55 | Outpatient (BNVA) | payer OTHER, MEDICAID, SELFPAY | PROVIDERS: PCP Family Medicine; Referring Provider Family Medicine; Visit Provider Nurse Practitioner Gerontology | DX: N20.0 Calculus of kidney (principal) | CPT/HCPCS: 99442 ==

== ENCOUNTER 2023-06-21 06:13 | Day surgery (SDC) | payer OTHER, MEDICAID, SELFPAY ==
[2023-06-21] VITALS (11 sets, daily range): BP systolic 92–149; BP diastolic 48–85; PULSE 56–70; RESP 14–22; TEMP 36.3–36.8; O2SAT 93–97; BMI 27.3
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
[2023-06-21] MEDS: Lactated Ringers 1,000 ML 80 ML IV (07:10)
[2023-06-21] MEDS: ceFAZolin 2 GM/50 ML BAG IVPB (07:30)
[2023-06-21] MEDS: Lidocaine 2% Jelly 6 ML SYR (07:46)
[2023-06-21] MEDS: Omnipaque 300 MG/ML 50 ML BTL (08:13)
--- NOTE | 2023-06-21 08:35 | DI.RAD_ITS ---
Exam(s) XR RETROGRADE IN OR EXAM: XR RETROGRADE IN OR CLINICAL HISTORY: bilateral kidney stones TECHNIQUE: 2D and realtime digital imaging was performed. CONTRAST MATERIAL: Refer to procedure report. COMPARISON: CT CT RENAL COLIC WO from 03/10/2023 FINDINGS: Fluoroscopy was provided for Dr. Kramer during the performance of a retrograde evaluation of the left renal collecting system. Please refer to the procedure report for complete details. Ka,r=5.33 mGy IMPRESSION: RADIATION DOSE DELIVERED:
--- NOTE | 2023-06-21 08:36 | W.PM.DSUDISC ---
Date of service: 06/21/23 Time of Service: 08:36 Discharge Plan Disposition Patient Disposition: Home Condition: Stable Discharge Details Reason For Visit: ureteroscopy Attending Provider: Robert Kramer Primary Care Provider: Pao Kilgore Home Meds and New Rx's Prescriptions: New oxybutynin chloride 5 mg tablet 5 mg PO BID-TID PRN (Reason: bladder spasms) Qty: 20 0RF tramadol 50 mg tablet 50 mg PO Q6H MDD 4 PRN (Reason: breakthrough pain) Qty: 20 0RF ketorolac 10 mg tablet 10 mg PO Q6H PRN (Reason: pain) 5 Days Qty: 20 0RF No Action cholecalciferol (vitamin D3) 50 mcg (2,000 unit) capsule 50 mcg PO DAILY (DME) FreeStyle Lite Strips 1 EACH strip 1 ea Miscellaneous DIRECTED (DME) lancets [FreeStyle Lancets] 1 EACH misc 1 ea Miscellaneous DIRECTED Centrum Silver 1 EACH tablet 1 ea PO DAILY Jacob Mag 3 cap PO DAILY methylphenidate HCl [Ritalin] 5 mg tablet 5 mg PO BID Rx Instructions: current med list: take 2-3 daily by mouth, MAX of 3 ascorbic acid (vitamin C) [Vitamin C] 500 mg tablet 500 mg PO DAILY clonazepam 0.5 mg tablet 0.5 mg PO TID levalbuterol tartrate [Xopenex HFA] 45 mcg/actuation HFA aerosol inhaler 2 inh inhalation Q4H PRN milk thistle seed extract 87.5 mg capsule 87.5 mg PO DAILY Rx Instructions: give with meal/snack propranolol 10 mg tablet 10 mg PO BID PRN desoximetasone 0.25 % ointment 1 applic TOPICAL PRN PRN Patient Comments: APPLY TO AFFECTED AREA(S) OF LICHEN SCLEROSIS ON GENITAL AREA TWO TIMES A DAY FOR 2 WEEKS; THEN TAKE A 5 DAY BREAK; REPEAT estradiol 0.01 % (0.1 mg/gram) cream 1 applic VAGINAL DAILY Patient Comments: APPLY A PEA SIZED AMOUNT ( 1 GRAM) VAGINALLY TWICE A WEEK. CombiPatch 0.05-0.14 mg/24 hr Patch Semiweekly 1 patch transdermal DIRECTED Patient Comments: Patch on lower right back Rx Instructions: change twice weekly Discharge Instructions Additional Instructions: no need to strain your urine you have a ureteral stent that has a black string attached - it is common to see blood in the urine and to have bladder spasms while the stent is in place followup appt in @ 1 week to have stent removed in office followup appt with provider in 6 to 8 weeks with renal ultrasound prior to visit Activity:: Activity as Tolerated Shower/Bathe:: 24 hours Diet:: As Tolerated Discharge Orders Discharge Orders: Discharge Order (Routine); Ordered 06/21/23 Ordered By: Robert Kramer DS: Diagnosis Discharge Diagnosis (1) Calculus, kidney: Status: Chronic
--- NOTE | 2023-06-21 08:46 | ROE_ITS ---
Date of service: 06/21/23 Time of Service: 08:46 Operative Note Operative Note DATE OF PROCEDURE: 06/21/23 PRE-OP DIAGNOSIS: Left kidney stones POST-OP DIAGNOSIS: same PROCEDURE: cystoscopy, left retrograde pyelogram, left flexible ureteroscopy with holmium laser lithotripsy of stones, stone fragment extraction, insert left ureteral stent SURGEON: Robert Kramer ANESTHESIA TYPE: Local By Surgeon and General LMA/ETT Refer to Anesthesia Record ESTIMATED BLOOD LOSS: 10 PATHOLOGY: other (stones for chemical analysis) COMPLICATIONS: None Patient was transported to: PACU Patient's condition: stable Implants: 4.8 American by 22 to 30 cm left ureteral stent with string attached Indications: This is a 68-year-old woman who has a history of calcium oxalate stones. We have been monitoring known left-sided stones with radiographic imaging. Her stones have been increasing in size and the stone that previously had been in the upper pole calyx migrated to a midpole calyx. She presents now for stone manipulation. Findings: stones in mid and lower pole of left kidney Procedure Description: The patient was given preoperative IV antibiotics. She was brought to the operating room on 06/21/2023. After successful induction of general anesthesia, she was placed in the dorsal lithotomy position. Her genitalia was prepped and draped. 2% Xylocaine jelly was instilled into the urethra to act as a local anesthetic. A 22 American rigid cystoscope was passed through the urethra into the bladder. The urethra and bladder were inspected with the 30 degree lens. Both ureteral orifices were identified. Each orifice appeared normal in configuration and location. The remainder of the bladder was smooth-walled with no papillary or nodular lesions. The left ureteral orifice was cannulated with a 5 American access catheter. A retrograde pyelogram was obtained by injecting Omnipaque through the access catheter under fluoroscopic guidance. This allowed us to outline the calyces on the left. 2 filling defects were seen 1 in a midpole calyx and 1 in the lower pole calyx. A guidewire was then passed through the lumen of the access catheter and the catheter was removed. We passed the dual-lumen catheter over the wire and a second wire was positioned. We chose one of the wires as a working wire and the other as a safety wire. The ureteral access sheath was advanced over the working wire. The sheath was positioned such that the tip was in the proximal ureter. The flexible ureteroscope was then passed through the lumen of the access sheath and advanced up to the kidney. The calyces were inspected and a 9 mm stone was seen in one of the midpole calyces. The stone was treated with a 272 ?m holmium laser fiber. We used a power setting of 0.8 and a rate of 8. The stone fragmented quite nicely. Once the stone had been fragmented, we were able to grasp the fragments and remove them in a 0 tip stone basket. Each of the fragments was then sent to pathology for chemical analysis. Once the midpole stone was treated, we then identified the lower pole stone. I treated the lower pole stone with the same holmium laser fiber. The lower pole stone fragments were so small that it was not felt that we needed to remove them with the stone basket. Once both stones had been treated, the ureteroscope and the access sheath were removed. A 4.8 American variable length stent was advanced over the safety wire. The proximal end of the stent was curled in the renal pelvis and the distal end was curled in the bladder. The positioning of the stent was confirmed both fluoroscopically and cystoscopically. The patient tolerated this procedure well with no complications. She was taken to the recovery room in stable condition.
[2023-06-21] MEDS: LORazepam 2 MG/ML VIAL 0.5 MG IVP (08:55)
--- NOTE | 2023-06-21 09:02 | W.ANESPOSTOP ---
Postoperative Evaluation Date, Time and Location Date Performed: 06/21/23 Time Performed: 09:02 Patient Location: PACU Vital Signs Most Recent Imported Vital Signs: Most Recent Vital Signs Temp Pulse Resp BP Pulse Ox 36.6 C 64 22 92/67 L 93 06/21/23 08:40 06/21/23 08:40 06/21/23 08:40 06/21/23 08:40 06/21/23 08:40 Pain Score Most Recent Pain Score: Most Recent Pain Score Pain Level 0 06/21/23 08:40 Assessment Mental Status: Awake (Alert & Oriented to Patient Baseline) Airway and Respiratory Function: Patent airway with normal (patient baseline) respiratory exam Cardiovascular Function: Hemodynamically Stable Hydration Status: Adequately Hydrated Nausea & Vomiting: No Nausea or Vomiting Pain: Pain is Moderate or Severe (fent and lorazepam ordered. ) Postoperative Pain Management: Pain being addressed with medication Peripheral Nerve Block: Patient did not receive a nerve block
[2023-06-21] MEDS: fentaNYL 100 MCG/2 ML VIAL IVP (09:16)
[2023-06-21] MEDS: Phenazopyridine 200 MG TAB PO (09:28)
[2023-06-21] MEDS: Oxybutynin 5 MG TAB PO (09:29)
[2023-06-24 16:35] LABS: Source: Left Ureter
== END 2023-06-21 11:50 | disposition home or self-care (01) ==
PROVIDERS: PCP Family Medicine; Visit Provider Urology
PROC: (CPT 52356; principal; 2023-06-21 07:30)
DX: N20.0 Calculus of kidney (principal); R73.03 Prediabetes; M79.7 Fibromyalgia; E05.00 Thyrotoxicosis with diffuse goiter without thyrotoxic crisis or storm
CPT/HCPCS: 52356; 74420; 82365; J0131; J0690; J1100; J1885; J2001; J2060; J2405; J2704; J3010; Q9967

== ENCOUNTER → 2023-06-25 10:56 | Outpatient (BNVA) | payer OTHER, MEDICAID, SELFPAY | PROVIDERS: PCP Family Medicine; Referring Provider Family Medicine; Visit Provider Urology | DX: N20.0 Calculus of kidney (principal); R52 Pain, unspecified; R30.0 Dysuria | CPT/HCPCS: 81003; 96372; 99213; J1885 ==

== ENCOUNTER → 2023-07-30 01:40 | Outpatient (CLI) | payer OTHER, MEDICAID, SELFPAY ==
--- NOTE | 2023-07-30 07:45 | DI.US_ITS ---
Exam(s) US RENAL EXAM: US RENAL CLINICAL HISTORY: ? hydronephrosis after ureteroscopy,kidney calculus,n20.0. TECHNIQUE: Bolton scale, color and spectral Doppler were used. COMPARISON: CT CT RENAL COLIC WO from 03/10/2023 US US RENAL from 05/31/2023 XA XR RETROGRADE IN OR from 06/21/2023 FINDINGS: Renal size in cm: Right: 10.1. Left: 10.6. Echogenicity: Normal. Hydronephrosis: No. Cyst or mass: No. Nephrolithiasis: There is a 6 mm echogenic focus in the superior pole of the left kidney. There are 2 echogenic foci seen in the right kidney. The larger measures 5 mm and is located in the superior p ole. The smaller measures 4 mm and is located in the midpole. These may represent nonobstructing st ones. Other findings: None. Bladder:Normal. Ureteral jets: Right: Visualized and unremarkable. Left: Visualized and unremarkable. Prevoid vol:228 cc Postvoid vol:34 cc Renal color flow: Symmetric and within normal limits. IMPRESSION: 1. Bilateral nephrolithiasis. 2. No hydronephrosis. DATA REPOSITORY:
== END ==
PROVIDERS: PCP Family Medicine; Visit Provider Urology
DX: N20.0 Calculus of kidney (principal)
CPT/HCPCS: 76770

== ENCOUNTER → 2023-08-03 08:21 | Outpatient (BNVA) | payer OTHER, MEDICAID, SELFPAY | PROVIDERS: PCP Family Medicine; Referring Provider Family Medicine; Visit Provider Urology | DX: N20.0 Calculus of kidney (principal) | CPT/HCPCS: 99214 ==

== ENCOUNTER 2023-10-20 16:23 | Outpatient (REF) | payer OTHER, MEDICAID, SELFPAY ==
[2023-10-20 19:20] LABS: Anion Gap 12.5 mmol/L (3-11); BUN 12 mg/dL (7-18); CO2 25.5 mmol/L (21.0-32.0); CREATININE 1.1 mg/dL (0.55-1.02); Calcium 9.5 mg/dL (8.5-10.1); Chloride 106 mmol/L (98-107); Estimated GFR 54.73 (mL/min/1.73m2); Glucose 142 mg/dL (74-106); Potassium 4.1 mmol/L (3.5-5.1); Sodium 144 mmol/L (136-145); TSH (W/Ref FT4) 1.66 uIU/mL (0.36-3.74)
[2023-10-20 20:44] LABS: Hemoglobin A1C 5.7 % (<5.7)
== END 2023-10-20 16:24 | disposition home or self-care (01) ==
LOC: NCHCN 16:23
PROVIDERS: PCP Family Medicine; Visit Provider Family Medicine
DX: R73.03 Prediabetes (principal)
CPT/HCPCS: 80048; 83036; 84443

== ENCOUNTER → 2023-10-27 11:37 | Outpatient (CLI) | payer OTHER, MEDICAID, SELFPAY ==
--- NOTE | 2023-10-27 14:17 | DI.US_ITS ---
APPROVED REPORT EXAM: Comprehensive 2D, Doppler, and color-flow Echocardiogram Patient Location: Out-Patient Manufacturing Executive: Jannette Shi RDCS (AE) Indications: Cardiac murmur Other Information Study Quality: Adequate Conclusion Normal left ventricular wall thickness and chamber size. Ejection fraction is 60%. Wall motion is n ormal Normal right ventricular size and function Both atria are normal in size There is no structural or hemodynamically significant valvular disease Estimated right ventricular systolic pressure is 25 mmHg Wall motion Left Ventricle The left ventricle is normal size. The left ventricular systolic function is normal. The left ventric ular ejection fraction is within the normal range. There is normal left ventricular wall thickness. T here is normal LV segmental wall motion. There is no ventricular septal defect visualized. LVEF is 60 %. Right Ventricle The right ventricle is normal size. The right ventricular systolic function is normal. Atria The left atrium size is normal. The right atrium size is normal. The interatrial septum is intact wit h no evidence for an atrial septal defect. Aortic Valve The aortic valve is normal in structure. Aortic valve is trileaflet. There is no aortic valvular sten osis. No aortic regurgitation is present. Mitral Valve The mitral valve is normal in structure. No evidence of mitral valve stenosis. Trace mitral regurgita tion. Tricuspid Valve The tricuspid valve is normal in structure. There is no tricuspid valve stenosis. Trace tricuspid reg urgitation. The RVSP is 25.3mmHg. Pulmonic Valve The pulmonary valve is normal in structure. There is no pulmonic valvular stenosis. Trace pulmonic re gurgitation. Great Vessels The aortic root is normal in size. The ascending aorta is normal in size. Aortic arch is normal in ca liber. IVC is normal in size and collapses >50% with inspiration. Pericardium There is no pericardial effusion. 2D Dimensions IVSD d PLAX 0.79 cm F: 0.6-1.0 Ao Root d 2.77 cm F: 2.7 - 3.3 LVPW d PLAX 0.89 cm F: 0.6 - 1.0 Ao Asc Diam d 3.08 cm F: 2.3 - 3.1 LVID d PLAX 4.34 cm F: 3.8 - 5.2 LVDs 2.97 cm F: 2.2 - 3.5 LV EF Teichholz 60.0 % FS 31.72 % LV EDV (Teich) 85.1 mL LV ESV (Teich) 34.0 mL M-Mode TAPSE 2.51 cm (M/F) >1.7 Auto EF LV EDV A4C 77.3 mL LV EDV A2C 86.4 mL LV EDV BP 81.9 mL LV ESV A4C 29.1 mL LV ESV A2C 34.3 mL LV ESV BP 31.7 mL LVEF(%) A4C 62.3 % LVEF(%) A2C 60.3 % LVEF(%) BP 61.2 % LV SV A4C 48.2 ml LV SV A2C 52.1 ml LV SV BP 50.1 ml LV CO A4C 3.1 L/min LV CO A2C 3.3 L/min LV CO BP 3.2 L/min HR A4C 64.29 BPM HR A2C 64.29 BPM LV EDV Index (BP) LA Volume LA Length A4C 4.9 cm LA Length A2C 5.2 cm LA Area A4C s 12.78 cm2 LA Area A2C s 14.54 cm2 LA Vol A4C A-L 28.54 mL LA Vol A2C A-L 34.56 mL LA Vol Biplane A-L 32.5 mL LA Vol/BSA A4C A-L LA Vol/BSA A2C A-L LA Vol/BSA BP A-L 19.3 mL/m2 LA Vol A4C MOD 27.1 mL LA Vol A2C MOD 32.7 mL LA Vol BP MOD 30.7 mL RA Volume RA Area A4C 9.6 cm2 RA ESV A4C (A-L) 20.3mL RA Vol/BSA A4C A-L RA Length A4C 3.9 cm RA ESV A4C (MOD) 19.2mL LV Diastology MV E' medial 0.067 (>0.07 m/s) MV E Vmax 0.72 (0.4-1.3 m/s) MV E/E' MED 10.74 (<14) MV A Vmax 1.00 (0.4-1.3 m/s) MV E' lateral 0.067 (>0.1 m/s) E/A Ratio 0.7 MV E/E' LAT 10.74 (<14) MV E' Average 0.067 m/s MV E/E'(average) 10.74 Aortic Valve AoV Vmax 1.52 m/s LVOT Vmax 1.14 m/s AoV Peak Grad 9.2 mmHg LVOT Peak Grad 5.2 mmHg AoV Area (Vmax) 2.38 cm2 LVOT VTI 0.266 m AoV VTI 0.346 m LVOT Mean Grad 2.6 mmHg AoV Mean [place]. 1.00 m/s LVOT SV 84.16 mL AoV Mean Grad 4.7 mmHg LVOT Diam s 2.00 cm AoV Area (VTI) 2.43 cm2 Velocity Ratio 0.75 Mitral Valve MV DT 278 (160-240 msec) MV Vmax TIPS 0.96 m/s MV Mean Grad 1.3 (<2mmHg) MV VTI 0.269 m Pulmonary Valve PV Vmax 0.98 (0.5-1.5 m/s) RVOT Vmax 0.75 m/s PV Peak Grad 3.9 mmHg RVOT Peak Gr. 2.2 mmHg PV Mean Roosevelt 0.72 m/s RVOT VTI 0.143 m PV Mean Grad 2.3 mmHg RVOT Mean Gr. 1.1 mmHg Tricuspid Valve RA Pressure 3.00 mmHg TR Vmax 2.36 m/s TV S' 0.13 m/s TR Peak Grad 22.3 mmHg RVSP (TR) 25.3 mmHg
== END ==
PROVIDERS: PCP Family Medicine; Visit Provider Family Medicine
DX: R01.1 Cardiac murmur, unspecified (principal); I34.0 Nonrheumatic mitral (valve) insufficiency; I36.1 Nonrheumatic tricuspid (valve) insufficiency; I37.1 Nonrheumatic pulmonary valve insufficiency
CPT/HCPCS: 93306

== ENCOUNTER 2024-01-25 02:10 | Outpatient (CLI) | payer OTHER, MEDICAID, SELFPAY ==
--- NOTE | 2024-01-25 07:00 | DI.US_ITS ---
Exam(s) US RENAL EXAM: US RENAL CLINICAL HISTORY: monitor known stones,calculus kidney,n20.0. TECHNIQUE: Bolton scale, color and spectral Doppler were used. COMPARISON: CT CT RENAL COLIC WO from 03/10/2023 US US RENAL from 07/30/2023 FINDINGS: Renal size in cm: Right: 9.9. Left: 10.3. Echogenicity: Normal. Hydronephrosis: There is very mild dilatation of the right renal pelvis. Cyst or mass: No. Nephrolithiasis: Distally noted echogenic foci are less prominent on the current examination. They d o not exhibit a twinkle artifact. No new suspicious echogenic foci are seen. Other findings: None. Bladder:Normal. Ureteral jets: Right: Not visualized on this examination. Left: Not visualized on this examination. Prevoid vol:237 cc Postvoid vol:23 cc Renal color flow: Symmetric and within normal limits. IMPRESSION: 1. The areas previously seen are less sonographically characteristic of renal stones on the current e xamination. No new echogenic foci are seen. 2. Mild dilatation of the right renal pelvis. DATA REPOSITORY:
== END 2024-01-25 02:30 ==
PROVIDERS: PCP Family Medicine; Visit Provider Urology
DX: N20.0 Calculus of kidney (principal)
CPT/HCPCS: 76770

== ENCOUNTER → 2024-02-04 10:25 | Outpatient (BNVA) | payer OTHER, MEDICAID, SELFPAY | PROVIDERS: PCP Family Medicine; Visit Provider Urology | DX: N20.0 Calculus of kidney (principal) | CPT/HCPCS: 99214 ==

== ENCOUNTER 2024-08-01 02:39 | Outpatient (CLI) | payer MEDICARE, MEDICAID, SELFPAY ==
--- NOTE | 2024-08-01 06:45 | DI.US_ITS ---
Exam(s) US RENAL EXAM: US RENAL CLINICAL HISTORY: monitor known stones,CALCULUS OF KIDNEY,N20.0. TECHNIQUE: Bolton scale, color and spectral Doppler were used. COMPARISON: US US RENAL from 01/25/2024 FINDINGS: Renal size in cm: Right: 9.7. Left: 10.9. Echogenicity: Normal. Hydronephrosis: No. Cyst or mass: No. Nephrolithiasis: There are 3 echogenic shadowing foci in the left kidney. The largest measures 6 mm. There is a single focus 4 mm echogenic nonshadowing focus in the right renal cortex. Other findings: None. Bladder:Normal. Ureteral jets: Right: Visualized and unremarkable. Left: Visualized and unremarkable. Prevoid vol:423 cc Postvoid vol:11 cc Renal color flow: Symmetric and within normal limits. IMPRESSION: Left nephrolithiasis. No obstructive uropathy. DATA REPOSITORY:
== END 2024-08-01 02:59 ==
PROVIDERS: PCP Family Medicine; Visit Provider Urology
DX: N20.0 Calculus of kidney (principal)
CPT/HCPCS: 76770

== ENCOUNTER → 2024-08-08 09:05 | Outpatient (BNVA) | payer MEDICARE, MEDICAID, SELFPAY | PROVIDERS: PCP Family Medicine; Referring Provider Family Medicine; Visit Provider Urology | DX: N20.0 Calculus of kidney (principal) | CPT/HCPCS: 99213 ==

== ENCOUNTER 2024-08-29 15:40 | Outpatient (CLI) | payer MEDICARE, MEDICAID, SELFPAY ==
--- NOTE | 2024-08-29 10:00 | DI.RAD_ITS ---
Exam(s) XR HAND LT COMPLETE EXAM: XR HAND LT COMPLETE CLINICAL HISTORY: pain/clicking. TECHNIQUE: 2D digital imaging was performed. Three views. COMPARISON: No exams were available for comparison FINDINGS: BONES: No acute fracture is present. No bony destructive lesion is seen. JOINTS: No dislocation present., Narrowing of the 1st carpal metacarpal joint and spurring at the tra pezium. Mild did joint space narrowing at the 1st metacarpophalangeal joint. Minimal degenerative c hanges elsewhere. SOFT TISSUE: Normal. IMPRESSION: Moderate degenerative changes at the 1st carpal metacarpal joint. DATA REPOSITORY: RADIATION DOSE DELIVERED:
== END 2024-08-29 15:41 | disposition home or self-care (01) ==
LOC: DIORS 15:41
PROVIDERS: PCP Family Medicine; Referring Provider Family Medicine; Visit Provider Student in an Organized Health Care Education/Training Program
DX: M65.312 Trigger thumb, left thumb; M19.042 Primary osteoarthritis, left hand
CPT/HCPCS: 99214; 73130

== ENCOUNTER 2024-10-20 14:46 | Outpatient (REF) | payer MEDICARE, MEDICAID, SELFPAY ==
[2024-10-20 22:17] LABS: Hemoglobin A1C 5.5 % (<5.7)
[2024-10-20 22:19] LABS: TSH (W/Ref FT4) 1.74 uIU/mL (0.36-3.74)
== END 2024-10-20 14:47 | disposition home or self-care (01) ==
LOC: NCHCN 14:46
PROVIDERS: PCP Family Medicine; Visit Provider Family Medicine
DX: Z86.39 Personal history of other endocrine, nutritional and metabolic disease (principal); Z09 Encounter for follow-up examination after completed treatment for conditions other than malignant neoplasm
CPT/HCPCS: 83036; 84443

== ENCOUNTER 2025-01-30 01:37 | Outpatient (CLI) | payer MEDICARE, MEDICAID, SELFPAY ==
--- NOTE | 2025-01-30 07:15 | DI.US_ITS ---
Exam(s) US RENAL EXAM: US RENAL CLINICAL HISTORY: monitor known kidney stones,n20.0,kidney calculus TECHNIQUE: Ultrasound of both kidneys performed using standard protocol. COMPARISON: US US RENAL from 08/01/2024 FINDINGS: RIGHT KIDNEY: Measures 10.2 cm in length. No cysts evident. Normal cortical thickness and corticomedullary differentiation .No solid masses There is a 5 millimeter nonobstructive echogenic focus at the midpole level LEFT KIDNEY: Measures 11.1 cm in length. No cysts evident. Normal cortical thickness and corticomedullary differentiaion. No solids masses. There are 2 echogenic foci consistent with nonobstructive calculi. One is in the superior pole region measuring 6 x 7 mm. The other is smaller in the mid-inferior pole level and measures 3 mm. URINARY BLADDER: Prevoid volume is 331 cc No evidence of bladder mass nor diverticuli. There are no echogenic foci within the bladder lumen to suggest intraluminal calculi within the bladder. Ureterovesical jets: Both identified and appear symmetrical IMPRESSION: 1. Bilateral nonobstructive nephrolithiasis again evident. The largest is in the superior pole region of the left kidney and measures 7 mm. There is no hydronephrosis on either side. 2. There are no obvious calculi seen in the bladder lumen. DATA REPOSITORY:
== END 2025-01-30 01:57 ==
LOC: DI 01:38
PROVIDERS: PCP Family Medicine; Visit Provider Urology
DX: N20.0 Calculus of kidney (principal)
CPT/HCPCS: 76770

== ENCOUNTER → 2025-02-06 10:32 | Outpatient (BNVA) | payer MEDICARE, MEDICAID, SELFPAY | PROVIDERS: PCP Family Medicine; Referring Provider Family Medicine; Visit Provider Urology | DX: N20.0 Calculus of kidney (principal) | CPT/HCPCS: 99213 ==

== ENCOUNTER 2025-02-14 18:18 | Outpatient (REF) | payer MEDICARE, MEDICAID, SELFPAY | END 2025-02-14 18:19 | disposition home or self-care (01) | LOC: LBN 18:18 | PROVIDERS: PCP Family Medicine; Visit Provider Urology | DX: N20.0 Calculus of kidney (principal) | CPT/HCPCS: 82365 ==

== ENCOUNTER → 2025-05-16 01:21 | Outpatient (CLI) | payer MEDICARE, MEDICAID, SELFPAY ==
--- NOTE | 2025-05-16 | DI.MAMMO_ITS ---
Exam(s) MAMMO SCREENING EXAM: MAMMO SCREENING CLINICAL HISTORY: SCREENING, Z12.31 TECHNIQUE: Bilateral full field digital CC and MLO mammographic images were obtained with 3D tomosynthesis and utilizing computer aided detection (CAD). COMPARISON: Comparison is made with prior examinations. FINDINGS: Masses/Architectural Distortion: No suspicious masses or areas of architectural distortion are present. Microcalcifications: No suspicious pleomorphic-type are seen. Skin Thickening/Nipple Retraction: None. IMPRESSION: 1. No significant interval change with no specific features of malignancy noted. 2. Unless there is more urgent need, screening mammography is recommended, as per [employer] guidelines. BI-RADS Category 1 - Negative Breast Density - Category C - The breast are heterogeneously dense, which may obscure small masses. Breast density Category C or D implies that the patient has dense breast tissue. Dense breast tissue can make it harder to find cancer on a mammogram. Dense breast tissue is also associated with an increased risk of breast cancer. This information about the result of the mammogram report was provided to the patient to raise their awareness. Use this report when you speak with the patient about their risks for breast cancer, which includes their family history. At that time, you may recommend additional screening tests (Ultrasound or MRI) as these tests may add significant information. A negative radiographic report should not delay biopsy if a dominant or clinically suspicious mass is present. Up to ten percent of cancers are not identified on mammography. A negative report may reinforce clinical impression. Adenosis and dense breasts may obscure an underlying neoplasm. False positive reports average 6 to 10%. Patient will receive a letter notifying them of these results.
== END ==
PROVIDERS: PCP Family Medicine; Visit Provider Family Medicine
DX: Z12.31 Encounter for screening mammogram for malignant neoplasm of breast (principal)
CPT/HCPCS: 77063; 77067